=== PATIENT | female | born 1955 | race Two or more races ===

== ENCOUNTER 2024-06-16 21:10 | Inpatient (IN) | payer OTHER, MEDICAID ==
[~2024-06-16] VITALS: Ht 167.6 cm; Wt 95.1 kg
--- NOTE | 2024-06-16 22:08 | ED.PDOC ---
Altered Mental Status HPI Comments 69-year-old female came to ER via EMS for altered level of consciousness. Per EMS, patient picked up at home, were family members noted patient to be acting altered and confused in the past few hours. Patient recently treated at [facility] for a toe infection 3 days ago.. 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 Family History Family History: Pt Confused Social History Smoker: Pt Confused Alcohol: Pt Confused Drugs: Pt Confused Lives In: Home Unable to Obtain due to: Altered Mental Status Physical Exam General Appearance: No Apparent Distress, Normal HEENT: Normal ENT Inspection, Pharynx Normal, TMs Normal Neck: Full Range of Motion, Non-Tender, Normal, Normal Inspection Respiratory: Chest Non-Tender, Lungs Clear, No Accessory Muscle Use, No Resp iratory Distress, Normal Breath Sounds Cardiovascular: No Edema, No JVD, No Murmur, No Gallop, Normal Peripheral Pulses, Regular Rate/Rhythm Breast Exam: Deferred Gastrointestinal: No Organomegaly, Non Tender, No Pulsatile Mass, Normal Bowel Sounds, Soft Genitalia: Deferred Pelvic: Deferred Rectal: Deferred Extremities: No calf tenderness, Normal capillary refill, Normal inspection, Normal range of motion, Non-tender, No pedal edema Musculoskeletal : Apperance: Normal Neurologic: Alert, 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 Was a procedure done?: No Differential Diagnosis (ALOC) Differential Diagnosis: Hypoglycemia, Encephalopathy, CVA X-Ray, Labs, Meds, VS Vital Signs Date Time Temp Pulse Resp B/P (MAP) Pulse Ox O2 Delivery O2 Flow Rate FiO2 06/17/24 00:05 98.0 85 16 136/47 (76) 98 98.0 06/16/24 23:20 98.0 15 126/44 (71) 98 98.0 06/16/24 23:20 84 15 98 Room Air* 0 21 06/16/24 21:26 83 06/16/24 21:10 97.8 83 20 118/67 (84) 97 97.8 Lab Test 06/16/24 22:54 06/16/24 21:59 Range/Units Troponin I High Sensitivity 11 11 </=34 ng/L White Blood Count 7.2 4.4-10.8 10^3/uL Red Blood Count 3.02 L 4.0-5.20 10^6/uL Hemoglobin 10.3 L 12.2-16.2 g/dL Hematocrit 30.5 L 36.0-46.0 % Mean Corpuscular Volume 100.9 H 80.0-100.0 fL Mean Corpuscular Hemoglobin 34.2 H 28.0-32.0 pg Mean Corpuscular Hemoglobin Concent 33.9 32.0-36.0 g/dL Red Cell Distribution Width 15.4 H 11.8-14.3 % Platelet Count 309 140-450 10^3/uL Mean Platelet Volume 7.1 6.9-10.8 fL Neutrophils (%) (Auto) 64.0 37.0-80.0 % Lymphocytes (%) (Auto) 23.0 10.0-50.0 % Monocytes (%) (Auto) 7.1 0.0-12.0 % Eosinophils (%) (Auto) 4.7 0.0-7.0 % Basophils (%) (Auto) 1.2 0.0-2.0 % Neutrophils # (Auto) 4.6 1.6-8.6 10 ^3/uL Lymphocytes # (Auto) 1.7 0.4-5.4 10 ^3/uL Monocytes # (Auto) 0.5 0-1.3 10 ^3/uL Eosinophils # (Auto) 0.3 0-0.8 10 ^3/uL Basophils # (Auto) 0.1 0-0.2 10 ^3/uL Nucleated Red Blood Cells 0.1 % Sodium Level 141 136-145 mmol/L Potassium Level 4.8 3.5-5.1 mmol/L Chloride Level 110 H 98-107 mmol/L Carbon Dioxide Level 22 20-31 mmol/L Anion Gap 9 5-15 Blood Urea Nitrogen 53 H 9-23 mg/dL Creatinine 2.43 H 0.550-1.02 mg/dL Glomerular Filtration Rate Calc 21 >90 mL/min BUN/Creatinine Ratio 21.8 H 10.0-20.0 Serum Glucose 137 H 74-106 mg/dL Lactic Acid Level 1.1 0.4-2.0 mmol/L Calcium Level 9.5 8.7-10.4 mg/dL Total Bilirubin 0.2 0.2-1.0 mg/dL Aspartate Amino Transferase (AST) 18 13-40 U/L Alanine Aminotransferase (ALT) 18 7-40 U/L Alkaline Phosphatase 126 H 46-116 U/L Total Protein 7.8 5.7-8.2 g/dL Albumin 3.9 3.2-4.8 g/dL EXAM: CT HEAD WITHOUT CONTRAST INDICATION: ams TECHNIQUE: CT of the head without intravenous contrast. Radiation Dose Information: CT Dose: CTDI volume is 53.41 mGy. Dose-length product is 4235.84 mGy*cm The dose indicators for CT are the volume Computed Tomography (CT) Dose Index (CTDIvol) and the Dose Length Product (DLP), and are measured in units of mGy and mGy-cm, respectively. These indicators are not patient dose, but values generated from the CT scanner acquisition factors. The report includes radiation exposure data for exposures received during this examination. COMPARISON: None FINDINGS: Postop changes from an aneurysm clip placement noted in the suprasellar region. Craniotomy defect is noted on the right There is encephalomalacia noted. There is no evidence of acute intracranial hemorrhage, extra-axial collection, mass effect, midline shift, herniation or hydrocephalus. The ventricles, sulci and cisterns are age appropriate. The cheng-white differentiation is intact. Patchy periventricular and subcortical white matter hypoattenuation is no nspecific but may be related to small vessel ischemic disease. The visualized paranasal sinuses and mastoid air cells are clear. The surrounding soft tissues and osseous structures are unremarkable. IMPRESSION: 1. Postop change from a craniotomy on the right from aneurysm clip placement. 2. No acute intracranial hemorrhage. CHEST RADIOGRAPH Indication: ams Technique: Single frontal view of the chest was obtained Comparison: None FINDINGS: Heart size is within normal limits. There is bilateral interstitial prominence no infiltrates or effusions are seen. IMPRESSION: 1. Bilateral interstitial prominence. follow-up CT examination of the chest suggested Time of 1ST Reevaluation: 22:45 Reevaluation 1ST: Unchanged Patient Education/Counseling: Diagnosis, Treatment Family Education/Counseling: No Family Present Departure 1 Departure Time of Disposition: 00:56 (Patient with altered mental status and worsening confusion. Patient was on antibiotics for a urinary tract infection at home. We will admit patient for further workup.) Impression: Primary Impression: Metabolic encephalopathy Disposition: ADMITTED INPATIENT Admit to: Med Surg Condition: Serious Critical Care Note Critical Care Time?: Yes (35 min-critical care time only) Critical care comment: ALOC Authorized and Performed by: Vin Vega MD Total critical care time: Approximately 37 minutes Due to a high probability of clinically significant, life threatening dete rioration, the patient required my highest level of preparedness to intervene emergently and I personally spent this critical care time directly and personally managing the patient. This critical care time included obtaining a history; examining the patient; pulse oximetry; ordering and review of studies; arranging urgent treatment with development of a management plan; evaluation of patient's response to treatment; frequent reassessment; and, discussions with other providers. This critical care time was performed to assess and manage the high probability of imminent, life-threatening deterioration that could result in multi-organ f ailure. It was exclusive of separately billable procedures and treating other patients and teaching time. Please see my other sections and the rest of the note for further information on patient assessment and treatment. Stability Stability form required: No Heart Score Heart Score: Heart Score Response (Comments) Value History N/A 0 EKG N/A 0 Age N/A 0 Risk Factors N/A 0 Troponin N/A 0 Total 0 I personally scribed for VIN VEGA MD ([email or web address]) on 06/16/24 at 22:08. Electronically submitted by Livan Hernandez ([email or web address]). I personally scribed for VIN VEGA MD ([email or web address]) on 06/16/24 at 22:45. Electronically submitted by Livan Hernandez ([email or web address]). I personally scribed for VIN VEGA MD ([email or web address]) on 06/16/24 at 22:47. Electronically submitted by Livan Hernandez ([email or web address]). VIN VEGA MD Jun 16, 2024 22:08
--- NOTE | 2024-06-16 22:11 | DVH ---
CHEST RADIOGRAPH Indication: ams Technique: Single frontal view of the chest was obtained Comparison: None FINDINGS: Heart size is within normal limits. There is bilateral interstitial prominence no infiltrates or effu sions are seen. IMPRESSION: 1. Bilateral interstitial prominence. follow-up CT examination of the chest suggested
--- NOTE | 2024-06-16 22:14 | DVH ---
EXAM: CT HEAD WITHOUT CONTRAST INDICATION: ams TECHNIQUE: CT of the head without intravenous contrast. Radiation Dose Information: CT Dose: CTDI volume is 53.41 mGy. Dose-length product is 4235.84 mGy*cm The dose indicators for CT are the volume Computed Tomography (CT) Dose Index (CTDIvol) and the Dose Length Product (DLP), and are measured in units of mGy and mGy-cm, respectively. These indicators are not patient dose, but values generated from the CT scanner acquisition factors. The report includes radiation exposure data for exposures received during this examination. COMPARISON: None FINDINGS: Postop changes from an aneurysm clip placement noted in the suprasellar region. Craniotomy defect is noted on the right There is encephalomalacia noted. There is no evidence of acute intracranial hemorr rena, extra-axial collection, mass effect, midline shift, herniation or hydrocephalus. The ventricles, sulci and cisterns are age appropriate. The cheng-white differentiation is intact. Patchy periventricular and subcortical white matter hypoattenuation is nonspecific but may be related to small vessel ischemic disease. The visualized paranasal sinuses and mastoid air cells are clear. The surrounding soft tissues and osseous structures are unremarkable. IMPRESSION: 1. Postop change from a craniotomy on the right from aneurysm clip placement. 2. No acute intracranial hemorrhage.
[2024-06-16 22:35] LABS: Alanine Aminotransferase 18 U/L (7-40); Albumin 3.9 g/dL (3.2-4.8); Anion Gap 9 (5-15); Aspartate Aminotransferase 18 U/L (13-40); BUN/Creatinine Ratio 21.8 (10.0-20.0); Calcium 9.5 mg/dL (8.7-10.4); Carbon Dioxide 22 mmol/L (20-31); Potassium 4.8 mmol/L (3.5-5.1); Sodium 141 mmol/L (136-145); Total Protein 7.8 g/dL (5.7-8.2)
[2024-06-16 22:40] LABS: Alkaline Phosphatase 126 U/L (46-116); Basophils # (auto) 0.1 10 ^3/uL (0-0.2); Basophils % (auto) 1.2 % (0.0-2.0); Bilirubin, Total 0.2 mg/dL (0.2-1.0); Blood Urea Nitrogen 53 mg/dL (9-23); Chloride 110 mmol/L (98-107); Eosinophils # (auto) 0.3 10 ^3/uL (0-0.8); Eosinophils % (auto) 4.7 % (0.0-7.0); Glucose 137 mg/dL (74-106); Hematocrit 30.5 % (36.0-46.0); Hemoglobin 10.3 g/dL (12.2-16.2); Lymphocytes # (auto) 1.7 10 ^3/uL (0.4-5.4); Mean Corpuscular Hemoglobin 34.2 pg (28.0-32.0); Mean Corpuscular Hgb Conc. 33.9 g/dL (32.0-36.0); Mean Corpuscular Volume 100.9 fL (80.0-100.0); Monocytes # (auto) 0.5 10 ^3/uL (0-1.3); Monocytes % (auto) 7.1 % (0.0-12.0); Neutrophils # (auto) 4.6 10 ^3/uL (1.6-8.6); Nucleated Red Blood Cells % 0.1 %; Platelet Count (auto) 309 10^3/uL (140-450); Red Blood Cells 3.02 10^6/uL (4.0-5.20); Red Cell Distribution Width 15.4 % (11.8-14.3); White Blood Cell 7.2 10^3/uL (4.4-10.8)
[2024-06-16 23:20] VITALS: PULSE 84; RESP 15; O2SAT 98
[2024-06-17 01:38] LABS: Urine Bacteria None Seen /hpf (None Seen)
[2024-06-17 01:49] LABS: Urine Blood Negative /uL (Negative); Urine Clarity Clear (Clear); Urine Color Yellow (Yellow); Urine Protein, UAD 1+ (Negative); Urine Specific Gravity 1.018 (1.001-1.035); Urine Squamous Epithelial Cell FEW /hpf (<5); Urine Urobilinogen Normal (Negative); Urine WBC 1 /HPF (0-5); Urine pH 5.5 (5.0-9.0)
--- NOTE | 2024-06-17 06:48 | ECG ---
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
[2024-06-17 07:32] VITALS: PULSE 84; RESP 15; O2SAT 98
--- NOTE | 2024-06-17 07:41 | DVH ---
EXAM: CT Chest Without Intravenous Contrast CLINICAL INDICATION: pna TECHNIQUE: Axial computed tomography images of the chest without intravenous contrast. This CT exam was performed using one or more of the following dose reduction techniques: automated exposure cont rol, adjustment of the mA and/or kV according to patient size, and/or use of iterative reconstruction technique. CONTRAST: RADIATION DOSE: CTDIvol = 15.35 mGy, DLP = 533.71 mGy-cm COMPARISON: None FINDINGS: LUNGS AND PLEURAL SPACES: Subtle nodular ground-glass opacity of the right lower lobe could be infe ctious or inflammatory process. Repeat CT in 3-6 months is recommended. Dependent atelectasis, bilat erally. No pneumothorax. No significant effusion. HEART: Unremarkable. No cardiomegaly. No significant pericardial effusion. No significant petersen ry artery calcifications. MEDIASTINUM: Scattered mediastinal lymph nodes some of which are upper limits of normal in size and are most likely reactive lymph nodes. Small esophageal hiatal hernia. BONES/JOINTS: Unremarkable. No acute fracture. No dislocation. SOFT TISSUES: Unremarkable. VASCULATURE: Scattered calcified atherosclerotic disease of aorta. No thoracic aortic aneurysm. LYMPH NODES: See above. OTHER FINDINGS: . . . . IMPRESSION: 1. Subtle nodular ground-glass opacity of the right lower lobe could be infectious or inflammatory p rocess. Repeat CT in 3-6 months is recommended. 2. Scattered mediastinal lymph nodes some of which are upper limits of normal in size and are most l ikely reactive lymph nodes. 3. Small esophageal hiatal hernia.
[2024-06-17] MEDS ORDERED: ONDANSETRON HCL 4 MG/2 ML VIAL IV PRN (08:00)
[2024-06-17] MEDS ORDERED: VANCOMYCIN PER PHARMACY 0 MG IV SCH (08:00)
[2024-06-17] MEDS ORDERED: DEXTROSE (50%) 50ML SYRG IV PRN (08:00)
--- NOTE | 2024-06-17 08:40 | DVHHP2 ---
History of Present Illness Reason for Visit: ALOC History of Present Illness Thu Chavez is a 69-year-old female with past medical history of hypertension, hyperlipidemia, diabetes type 2, and COPD who presents to the ED for altered level conscious. Patient reports that she fell 3 days ago fall from her wheelchair and landed on her head with no loss of consciousness. Per reports patient was at [facility] 3 days ago for a right toe infection. Tod onofre also reports that she uses a wheelchair to get around. Upon examination patient is noted to have bruising and scarring above her nasal bridge as well as her left nare. Patient denies any chest pain, fever, chills, lightheadedness, weakness, dizziness, shortness of breath, recent sick contacts, recent ingestion of spoiled food, abdominal pain, nausea, vomiting, or diarrhea. Cardiovascular: HTN, hyperipidemia Pulmonary: COPD Endocrine: Diabetes Past Surgical History: None Family History: None Smoke: No ALCOHOL: none Drugs: None Lives: with Family Domestic Violence: Neg Review of Systems Skin: Other (Erythema bilateral lower extremities) Allergies: Coded Allergies: Felbamate (Verified Allergy, Unknown, 06/16/24) Exam Vital Signs Vital Signs Date Time Temp Pulse Resp B/P (MAP) Pulse Ox O2 Delivery O2 Flow Rate FiO2 06/17/24 07:32 84 15 98 Room Air* 0 21 06/17/24 06:51 111/47 (68) 06/17/24 00:05 98.0 98.0 General Appearance: Alert, Oriented X3, Cooperative, No acute distress HEENT: Atraumatic, PERRLA, EOMI, Mucous membr. moist/pink Respiratory: Normal air movement Cardiovascular: Regular rate, Normal S1, Normal S2, No murmurs Abdominal: Normal bowel sounds, Soft, No tenderness, No hepatospenomegaly Extremities: No clubbing, No cyanosis Neuro: Normal speech, Normal tone, Sensation intact Psych/Mental Status: Mental status NL, Mood NL Labs/Xrays Labs Test 06/17/24 01:20 06/16/24 22:54 06/16/24 21:59 Range/Units Urine Color Yellow Yellow Urine Clarity Clear Clear Urine pH 5.5 5.0-9.0 Urine Specific [place] 1.018 1.001-1.035 Urine Protein 1+ H Negative Urine Ketones Negative Negative Urine Blood Negative Negative /uL Urine Nitrite Negative Negative Urine Bilirubin Negative Negative Urine Urobilinogen Normal Negative mg/dL Urine Leukocyte Esterase Negative Negative /uL Urine RBC None seen 0 - 4 /hpf Urine Microscopic WBC 1 0-5 /HPF Urine Squamous Epithelial Cells Few <5 /hpf Urine Bacteria None seen None Seen /hpf Urine Glucose Normal Normal mg/dL Troponin I High Sensitivity 11 </=34 ng/L White Blood Count 7.2 4.4-10.8 10^3/uL Red Blood Count 3.02 L 4.0-5.20 10^6/uL Hemoglobin 10.3 L 12.2-16.2 g/dL Hematocrit 30.5 L 36.0-46.0 % Mean Corpuscular Volume 100.9 H 80.0-100.0 fL Mean Corpuscular Hemoglobin 34.2 H 28.0-32.0 pg Mean Corpuscular Hemoglobin Concent 33.9 32.0-36.0 g/dL Red Cell Distribution Width 15.4 H 11.8-14.3 % Platelet Count 309 140-450 10^3/uL Mean Platelet Volume 7.1 6.9-10.8 fL Neutrophils (%) (Auto) 64.0 37.0-80.0 % Lymphocytes (%) (Auto) 23.0 10.0-50.0 % Monocytes (%) (Auto) 7.1 0.0-12.0 % Eosinophils (%) (Auto) 4.7 0.0-7.0 % Basophils (%) (Auto) 1.2 0.0-2.0 % Neutrophils # (Auto) 4.6 1.6-8.6 10 ^3/uL Lymphocytes # (Auto) 1.7 0.4-5.4 10 ^3/uL Monocytes # (Auto) 0.5 0-1.3 10 ^3/uL Eosinophils # (Auto) 0.3 0-0.8 10 ^3/uL Basophils # (Auto) 0.1 0-0.2 10 ^3/uL Nucleated Red Blood Cells 0.1 % Sodium Level 141 136-145 mmol/L Potassium Level 4.8 3.5-5.1 mmol/L Chloride Level 110 H 98-107 mmol/L Carbon Dioxide Level 22 20-31 mmol/L Anion Gap 9 5-15 Blood Urea Nitrogen 53 H 9-23 mg/dL Creatinine 2.43 H 0.550-1.02 mg/dL Glomerular Filtration Rate Calc 21 >90 mL/min BUN/Creatinine Ratio 21.8 H 10.0-20.0 Serum Glucose 137 H 74-106 mg/dL Lactic Acid Level 1.1 0.4-2.0 mmol/L Calcium Level 9.5 8.7-10.4 mg/dL Total Bilirubin 0.2 0.2-1.0 mg/dL Aspartate Amino Transferase (AST) 18 13-40 U/L Alanine Aminotransferase (ALT) 18 7-40 U/L Alkaline Phosphatase 126 H 46-116 U/L Total Protein 7.8 5.7-8.2 g/dL Albumin 3.9 3.2-4.8 g/dL EXAM: CT Chest Without Intravenous Contrast CLINICAL INDICATION: pna TECHNIQUE: Axial computed tomography images of the chest without intravenous contrast. This CT exam was performed using one or more of the following dose reduction techniques: automated exposure control, adjustment of the mA and/or kV according to patient size, and/or use of iterative reconstruction technique. CONTRAST: RADIATION DOSE: CTDIvol = 15.35 mGy, DLP = 533.71 mGy-cm COMPARISON: None FINDINGS: LUNGS AND PLEURAL SPACES: Subtle nodular ground-glass opacity of the right lower lobe could be infectious or inflammatory process. Repeat CT in 3-6 months is recommended. Dependent atelectasis, bilaterally. No pneumothorax. No significant effusion. HEART: Unremarkable. No cardiomegaly. No significant pericardial effusion. No significant coronary artery calcifications. MEDIASTINUM: Scattered mediastinal lymph nodes some of which are upper limits of normal in size and are most likely reactive lymph nodes. Small esophageal hiatal hernia. BONES/JOINTS: Unremarkable. No acute fracture. No dislocation. SOFT TISSUES: Unremarkable. VASCULATURE: Scattered calcified atherosclerotic disease of aorta. No thoracic aortic aneurysm. LYMPH NODES: See above. OTHER FINDINGS: . . . . IMPRESSION: 1. Subtle nodular ground-glass opacity of the right lower lobe could be infecti ous or inflammatory process. Repeat CT in 3-6 months is recommended. 2. Scattered mediastinal lymph nodes some of which are upper limits of normal in size and are most likely reactive lymph nodes. 3. Small esophageal hiatal hernia. EXAM: CT HEAD WITHOUT CONTRAST INDICATION: ams TECHNIQUE: CT of the head without intravenous contrast. Radiation Dose Information: CT Dose: CTDI volume is 53.41 mGy. Dose-length product is 4235.84 mGy*cm The dose indicators for CT are the volume Computed Tomography (CT) Dose Index (CTDIvol) and the Dose Length Product (DLP), and are measured in units of mGy and mGy-cm, respectively. These indicators are not patient dose, but values generated from the CT scanner acquisition factors. The report includes radiation exposure data for exposures received during this examination. COMPARISON: None FINDINGS: Postop changes from an aneurysm clip placement noted in the suprasellar region. Craniotomy defect is noted on the right There is encephalomalacia noted. There is no evidence of acute intracranial hemorrhage, extra-axial collection, mass effect, midline shift, herniation or hydrocephalus. The ventricles, sulci and cisterns are age appropriate. The cheng-white differentiation is intact. Patchy periventricular and subcortical white matter hypoattenuation is nonspecific but may be related to small vessel ischemic disease. The visualized paranasal sinuses and mastoid air cells are clear. The surrounding soft tissues and osseous structures are unremarkable. IMPRESSION: 1. Postop change from a craniotomy on the right from aneurysm clip placement. 2. No acute intracranial hemorrhage. CHEST RADIOGRAPH Indication: ams Technique: Single frontal view of the chest was obtained Comparison: None FINDINGS: Heart size is within normal limits. There is bilateral interstitial prominence no infiltrates or effusions are seen. IMPRESSION: 1. Bilateral interstitial prominence. follow-up CT examination of the chest suggested Assessment/Plan Assessment/Plan Assessment Acute encephalopathy Status post mechanical fall Erythromelalgia rule out cellulitis Right lower lobe opacity rule out pneumonia Small esophageal hiatal hernia History of hypertension History of hyperlipidemia History of diabetes type 2 History of COPD Plan Admit to [facility] Jackson catheter placed in ED EKG Troponin negative x2 Blood cultures Lactic level Urine culture CT head noted Chest x-ray UA CT chest ordered Hemoglobin A1c ISS and Accu-Cheks Wound care consult IV antibiotics-vancomycin + cefepime Home medications reconciled DVT prophylaxis-patient on Plavix PUD prophylaxis-Protonix Discussed plan of care with patient and nurse Nephro consult Plan discussed with: Patient My Orders Orders - JOSEP CHAPA [employer] Procedure Category Date Status Time Chest Without Contrast CT 06/17/24 Resulted 06:54 *[facility] CONS 06/17/24 Verified -[place] 07:50 * Wound Consult CONS 06/17/24 Verified Admit ADMIT 06/17/24 Verified 07:50 Allergies ED 06/17/24 Verified 07:50 Code Status CODE 06/17/24 Verified 07:50 Hydrocodone-Acet PHA 06/17/24 Verified 5/325mg Tab ([place] 08:00 Ondansetron Hcl PHA 06/17/24 Verified (Zofran) 08:00 Complete Blood Count LAB 06/18/24 Verified 04:00 Comprehensive LAB 06/18/24 Verified Metabolic Panel 04:00 Cardiac DIET 06/17/24 Verified Diet-2gna,Lofat,Lochol Breakfast Enoxaparin Sodium PHA 06/17/24 Verified (Lovenox) 10:00 Acetaminophen Tablet PHA 06/17/24 Verified (Tylenol Tablet) 08:00 Glucose Blood PHA 06/17/24 Verified (Accu-Chek Comfort 11:30 Mild Sliding Scale PHA 06/17/24 Verified 11:30 Dextrose 50% Syringe PHA 06/17/24 Verified 08:00 Hemoglobin A1c LAB 06/17/24 Verified 07:50 Vancomycin Per PHA 06/17/24 Verified Pharmacy 08:00 Cefepime 1 Gm PHA 06/17/24 Verified 10:00 Date of Service: Jun 17, 2024 Billing Provider: JOSEP CHAPA Common Visit Codes: [id number] INP/OBS CARE (HIGH) JOSEP CHAPA Jun 17, 2024 08:40
[2024-06-17] MEDS ORDERED: CARB200T4 PO (08:50)
[2024-06-17] MEDS ORDERED: CLOP75TA70 PO (08:50)
[2024-06-17] MEDS ORDERED: CARV3.1240 PO (08:50)
[2024-06-17] MEDS ORDERED: FURO40TA4 PO (08:50)
[2024-06-17] MEDS ORDERED: ALLO100T PO (08:50)
[2024-06-17] MEDS ORDERED: GABA-1250 PO (08:50)
[2024-06-17] MEDS ORDERED: MONT-8 PO (08:50)
[2024-06-17] MEDS ORDERED: ATOR40TA52 (08:50)
[2024-06-17] MEDS ORDERED: AMLO1TAB23 PO (08:50)
[2024-06-17] MEDS: VANCOMYCIN 1GM/200ML PM 200 ML IV ONE (09:35)
[2024-06-17] MEDS: amLODIPine BESYLATE 5 MG TAB PO SCH (10:00)
[2024-06-17] MEDS ORDERED: OSELTAMIVIR 75 MG CAP PO SCH (10:00)
[2024-06-17] MEDS ORDERED: ENOXAPARIN SOD 30 MG/0.3 ML SYRINGE SC SCH (10:00)
[2024-06-17] MEDS: FUROSEMIDE 40 MG TAB PO SCH (10:00)
[2024-06-17] MEDS: MONTELUKAST SODIUM 10 MG TAB PO SCH (11:04)
[2024-06-17] MEDS: CEFEPIME 1GM/ 50ML 50 ML IV SCH (11:04)
[2024-06-17] MEDS: CLOPIDOGREL BISULFATE 75 MG TAB PO SCH (11:04)
[2024-06-17] MEDS: CARVEDILOL 3.125 MG TAB PO SCH (11:05)
[2024-06-17] MEDS: GABAPENTIN 300 MG CAP PO SCH (11:05)
[2024-06-17] MEDS: InsuLIN REG 1unit/0.01ml Soln (100units/ml) SC SCH (11:27)
[2024-06-17] MEDS: ACCU-CHEK COMFORT CURVE STRIP VI SCH (11:27)
[2024-06-17 12:59] LABS: Protein, Urine 99.5 mg/dL (1-14)
[2024-06-17] MEDS: carBAMazepine 200 MG TAB PO SCH (12:59)
[2024-06-17 13:02] LABS: Creatinine, Urine 97.12 mg/dL (30.0-125.0)
[2024-06-17] MEDS: SODIUM CHLORIDE 0.9% 1,000 ML IV ONE (13:28)
[2024-06-17] MEDS: PANTOPRAZOLE 40 MG/10 ML VIAL INJ IV SCH (15:50)
--- NOTE | 2024-06-17 16:20 | DVH ---
US BiLat Lower DVT HISTORY: ro dvt COMPARISON: None TECHNIQUE: Duplex doppler evaluation of the deep venous system of the lower extremity from the common femoral veins, superficial femoral vein, great saphenous vein, deep femoral vein, popliteal vein, an d calf veins, including color Doppler and spectral/pulsed waveform analysis, was performed. FINDINGS: Right: - Common femoral vein: Compressible - Deep femoral vein: Compressible - Femoral vein: Compressible - Popliteal vein: Compressible - Posterior tibial vein: Waveforms present Left: - Common femoral vein: Compressible - Deep femoral vein: Compressible - Femoral vein: Compressible - Popliteal vein: Compressible - Posterior tibial vein: Waveforms present - Other: Nothing IMPRESSION: No right or left lower extremity deep venous thrombosis.
[2024-06-17 16:31] VITALS: BP 112/44; PULSE 83; RESP 18; TEMP 97.6; O2SAT 98
[2024-06-17 16:47] VITALS: BP 112/44; PULSE 91; RESP 18; TEMP 97.6; O2SAT 98
[2024-06-17] MEDS: HYDROcodone-ACET 5/325MG TAB PO PRN (17:31)
[2024-06-17 20:00] VITALS: PULSE 62; RESP 16; O2SAT 92
[2024-06-17 21:00] VITALS: BP 118/50; PULSE 62; RESP 15; TEMP 98.2; O2SAT 100
[2024-06-17] MEDS: ATORVASTATIN 20 MG TAB PO SCH (22:07)
[2024-06-18] VITALS (11 sets, daily range): BP systolic 102–141; BP diastolic 43–59; PULSE 71–98; RESP 17–20; TEMP 97.3–98.1; O2SAT 93–99
[2024-06-18 07:30] LABS: Basophils # (auto) 0.1 10 ^3/uL (0-0.2); Basophils % (auto) 1.1 % (0.0-2.0); Eosinophils # (auto) 0.4 10 ^3/uL (0-0.8); Hematocrit 29.4 % (36.0-46.0); Lymphocytes # (auto) 1.6 10 ^3/uL (0.4-5.4); Lymphocytes % (auto) 16.6 % (10.0-50.0); Mean Corpuscular Hemoglobin 34.1 pg (28.0-32.0); Mean Corpuscular Hgb Conc. 33.9 g/dL (32.0-36.0); Mean Corpuscular Volume 100.5 fL (80.0-100.0); Monocytes # (auto) 0.7 10 ^3/uL (0-1.3); Monocytes % (auto) 7.2 % (0.0-12.0); Neutrophils # (auto) 6.7 10 ^3/uL (1.6-8.6); Neutrophils % (auto) 71.1 % (37.0-80.0); Platelet Count (auto) 317 10^3/uL (140-450); Red Blood Cells 2.93 10^6/uL (4.0-5.20); White Blood Cell 9.4 10^3/uL (4.4-10.8)
[2024-06-18 07:35] LABS: Alanine Aminotransferase 15 U/L (7-40); Albumin 3.6 g/dL (3.2-4.8); Anion Gap 11 (5-15); Aspartate Aminotransferase 18 U/L (13-40); BUN/Creatinine Ratio 19.9 (10.0-20.0); Calcium 9.3 mg/dL (8.7-10.4); Potassium 4.4 mmol/L (3.5-5.1); Sodium 139 mmol/L (136-145); Total Protein 7.3 g/dL (5.7-8.2)
[2024-06-18 07:36] LABS: Bilirubin, Total 0.3 mg/dL (0.2-1.0); Phosphorus 3.3 mg/dL (2.4-5.1)
[2024-06-18 07:42] LABS: Alkaline Phosphatase 122 U/L (46-116); Blood Urea Nitrogen 50 mg/dL (9-23); Carbon Dioxide 19 mmol/L (20-31); Chloride 109 mmol/L (98-107); Glucose 122 mg/dL (74-106)
[2024-06-18 07:57] LABS: Uric Acid 9.5 mg/dL (3.1-7.8)
[2024-06-18] MEDS: SODIUM CHLORIDE 0.9% 1,000 ML IV ONE ×2 (12:42→15:06)
[2024-06-18] MEDS ORDERED: VANCOMYCIN 750MG KIT 100 ML IV ONE (13:00)
--- NOTE | 2024-06-18 14:00 | DVH ---
CLINICAL INFORMATION: Abnormal laboratory findings. TECHNIQUE: Grayscale sonographic imaging of the kidneys and bladder was performed, assisted by color Doppler technique. COMPARISON: None FINDINGS: The right kidney measures 7.2 cm in length. No hydronephrosis. Increased echogenicity of the right kidney with likely decreased cortical thickness. Right kidney is poorly visualized The left kidney measures 7.9 cm in length. No hydronephrosis. Increased cortical echogenicity of th e left kidney with decreased cortical thickness. Limited visualization of the left kidney. Bladder is collapsed around a Jackson catheter balloon and unable to be evaluated. IMPRESSION: 1. No hydronephrosis. 2. Small bilateral kidneys with increased cortical echogenicity, likely sequela of nonspecific medica l renal disease. 3. Limited examination.
[2024-06-18] MEDS: MULTIPLE VITAMIN TAB PO ONE (14:14)
[2024-06-18] MEDS: cefTRIAXone 1GM/50ML D5W 50 ML IV ONE (14:15)
--- NOTE | 2024-06-18 14:46 | DVH ---
BILATERAL Lower Extremity Arterial Duplex Date: 06/18/2024 10:58 AM Clinical History: PAD Comparison: None Technique: Duplex Doppler evaluation including color Doppler and spectral/pulsed waveform analysis of the lower extremity arteries was performed. Finding: RIGHT: Peak systolic velocities are as follows: [employer] 183 cm/s triphasic waveform 30-49% stenosis Deep femoral 174 cm/s triphasic waveform 30-40% stenosis SFA proximal 154 cm/s triphasic waveform 30-49% stenosis SFA mid-portion 133 cm/s biphasic waveform SFA distal 83 cm/s monophasic waveform Popliteal 55 cm/s monophasic waveform Posterior tibial 17 cm/s monophasic Anterior tibial 126 cm/s monophasic Dorsalis pedis 27 cm/s monophasic waveform The waveforms are triphasic and biphasic waveform to the mid superficial femoral artery. Monophasic w aveform distal to that level. LEFT: Peak systolic velocities are as follows: WO[employer] 228 cm/s triphasic waveform 50-75% stenosis Deep femoral 132 cm/s biphasic waveform SFA proximal 139 cm/s biphasic waveform SFA mid-portion 170 cm/s biphasic waveform SFA distal 74 cm/s biphasic waveform Popliteal 268 cm/s biphasic waveform 50-75% stenosis Posterior tibial 60 cm/s biphasic waveform Anterior tibial 38 cm/s biphasic waveform Dorsalis pedis 47 cm/s monophasic waveform The waveforms are triphasic and biphasic waveform. Monophasic waveform in the dorsalis pedis. REFERENCE VALUES, [facility] ([facility]) vascular Imaging Lab Criteria: Peak systolic velocity ranges (in cm/sec) are as follows: <150 cm/s - <20 % stenosis 150-200 cm/s - 20-49% stenosis 200-300 cm/s - 50-75% stenosis >300 cm/s -> 75% stenosis IMPRESSION: 1. There is 30-49% stenosis in the right common femoral artery deep femoral artery and mid superficia l femoral artery. Monophasic waveform in the right superficial femoral artery proximally and monophas ic waveform to the dorsalis pedis on the right 2. On the left there is 50-75% stenosis in the common femoral artery. 3. There is 50-75% stenosis in the left mid superficial femoral artery 4. There is 50-75% stenosis in the left popliteal artery 5. The arteries are calcified bilaterally throughout. 6. No significant focal stenosis is identified. There is no evidence for peripheral vascular insufficiency in the left lower extremity.
[2024-06-18] MEDS ORDERED: ALBU108A5 PO (15:06)
[2024-06-18] MEDS ORDERED: CEPH500C PO (15:06)
[2024-06-18] MEDS ORDERED: ASPI1CHW5 PO (15:06)
--- NOTE | 2024-06-18 15:16 | DVHINCON2 ---
Date of service: Jun 18, 2024 Referring Physician Sania Reason for Consultation MARILIN History of Present Illness 69 y/o female with past medical hx of CKD unknown stage, HTN, DM type 2, COPD, and hyperlipidemia. Pt was admitted for acute encephalopathy, r/o LLE cellulitis. Pt reports she fell at home. Nephrology consult for MARILIN. On admission BUN 53, creat 2.43, GFR 21. Pt reports hx of CKD however does not recall stage or last GFR. Denies NSAID use. Reports HTN and DM are well controlled. Past Medical History CKD unknown stage, HTN, DM type 2, COPD, and hyperlipidemia Allergies: Coded Allergies: Felbamate (Verified Allergy, Unknown, 06/16/24) Home Meds Reported Medications Aspirin (Chewable Aspirin) 81 Mg Chw, 1 TAB PO DAILY 06/18/24 Albuterol Sulfate (Albuterol Sulfate Hfa) 108 Mcg/Act Aer, 2 PUFF PO Q4HPRN PRN for SHORTNESS OF BREATH 06/18/24 Cephalexin Monohydrate (Cephalexin) 500 Mg Cap, 1 CAP PO QID 06/18/24 Atorvastatin Calcium (ATORVASTATIN CALCIUM) 40 Mg Tab 06/17/24 Gabapentin (Gabapentin) 300 Mg Cap, 1 CAP PO BID 06/17/24 Amlodipine Besylate (Amlodipine Besylate) 10 Mg Tab, 1 TAB PO DAILY 06/17/24 Montelukast Sodium (MONTELUKAST SODIUM) 10 Mg Tab, 1 TAB PO DAILY 06/17/24 Carbamazepine (Carbamazepine) 200 Mg Tab, 1 TAB PO QID 06/17/24 Clopidogrel Bisulfate (CLOPIDOGREL) 75 Mg Tab, 1 TAB PO DAILY 06/17/24 Furosemide (Furosemide) 40 Mg Tab, 1 TAB PO BID 06/17/24 Carvedilol (Carvedilol) 3.125 Mg Tab, 1 TAB PO 06/17/24 Allopurinol (Allopurinol) 100 Mg Tab, 1 TAB PO DAILY 06/17/24 Current Medications Current Medications Medications (Trade) Dose Ordered Sig/Martita Route PRN Reason Start Time Stop Time Status Last Admin Atorvastatin Calcium (Lipitor) 40 mg HS PO 06/17/24 22:00 06/17/24 22:07 Ceftriaxone Sodium 50 ml @ 100 mls/hr DAILY@09 IV 06/19/24 09:00 Multivitamins (Mvi Tab) 1 tab DAILY PO 06/19/24 10:00 Enteral Nutritional Formula (Ensure High Protein) 240 ml BIDWM PO 06/18/24 18:00 Cancel Enteral Nutritional Formula (Glucerna Carbsteady SHAKE) 240 ml BIDWM PO 06/18/24 18:00 Doxycycline Hyclate 100 ml @ 50 mls/hr Q12HR IV 06/18/24 22:00 Albuterol (Ventolin Medneb) 2.5 mg Q6HWA NEB 06/18/24 18:00 Ipratropium [place] (Atrovent Medneb) 0.5 mg Q6HWA NEB 06/18/24 18:00 Emollient Ointment (Vaseline Lip Therapy) 1 applic PRN PRN TOP FOR DRY LIPS 06/18/24 17:15 UNV Family History: Patient reports no known family medical history. Review of Systems 10 systems reviewed and negative except as per HPI H&P Exam Vital Signs/I&O Vital Sign Date Time Temp Pulse Resp B/P (MAP) Pulse Ox O2 Delivery O2 Flow Rate FiO2 06/18/24 17:10 129/59 (82) 06/18/24 17:06 97.7 83 19 99 97.7 06/17/24 20:00 Room Air* 0 21 Intake and Output 06/17/24 06/18/24 19:00 07:00 Intake Total 200 ml 800 ml Output Total 1200 ml 600 ml Balance -1000 ml 200 ml Intake Oral 800 ml IV Total 200 ml Output Urine Total 1200 ml 600 ml Physical Exam Gen: Appears stated age, no acute distress HEENT: Pupils equal and reactive to light and accommodation Lungs: Bilateral air entry, no rales CVS: RRR, normal S1 and S2 Abd: normoactive bowel sounds, soft, nondistended Ext: No edema Neuro: Alert and oriented x3 Labs/Diagnostic Data Labs/Diagnostic Data Laboratory Tests Test 06/18/24 16:53 06/18/24 15:01 06/18/24 12:32 06/18/24 06:30 Range/Units POC Glucose 101 104 70-106 mg/dl Ammonia < 10 L 11-32 umol/L White Blood Count 9.4 # 4.4-10.8 10^3/uL Red Blood Count 2.93 L 4.0-5.20 10^6/uL Hemoglobin 10.0 L 12.2-16.2 g/dL Hematocrit 29.4 L 36.0-46.0 % Mean Corpuscular Volume 100.5 H 80.0-100.0 fL Mean Corpuscular Hemoglobin 34.1 H 28.0-32.0 pg Mean Corpuscular Hemoglobin Concent 33.9 32.0-36.0 g/dL Red Cell Distribution Width 16.0 H 11.8-14.3 % Platelet Count 317 140-450 10^3/uL Mean Platelet Volume 7.4 6.9-10.8 fL Neutrophils (%) (Auto) 71.1 37.0-80.0 % Lymphocytes (%) (Auto) 16.6 10.0-50.0 % Monocytes (%) (Auto) 7.2 0.0-12.0 % Eosinophils (%) (Auto) 4.0 0.0-7.0 % Basophils (%) (Auto) 1.1 0.0-2.0 % Neutrophils # (Auto) 6.7 1.6-8.6 10 ^3/uL Lymphocytes # (Auto) 1.6 0.4-5.4 10 ^3/uL Monocytes # (Auto) 0.7 0-1.3 10 ^3/uL Eosinophils # (Auto) 0.4 0-0.8 10 ^3/uL Basophils # (Auto) 0.1 0-0.2 10 ^3/uL Nucleated Red Blood Cells 0.0 % Sodium Level 139 136-145 mmol/L Potassium Level 4.4 3.5-5.1 mmol/L Chloride Level 109 H 98-107 mmol/L Carbon Dioxide Level 19 L 20-31 mmol/L Anion Gap 11 5-15 Blood Urea Nitrogen 50 H 9-23 mg/dL Creatinine 2.51 H 0.550-1.02 mg/dL Glomerular Filtration Rate Calc 20 >90 mL/min BUN/Creatinine Ratio 19.9 10.0-20.0 Serum Glucose 122 H 74-106 mg/dL Uric Acid 9.5 H 3.1-7.8 mg/dL Calcium Level 9.3 8.7-10.4 mg/dL Phosphorus Level 3.3 2.4-5.1 mg/dL Magnesium Level 2.1 1.6-2.6 mg/dL Total Bilirubin 0.3 0.2-1.0 mg/dL Aspartate Amino Transferase (AST) 18 13-40 U/L Alanine Aminotransferase (ALT) 15 7-40 U/L Alkaline Phosphatase 122 H 46-116 U/L Total Protein 7.3 5.7-8.2 g/dL Albumin 3.6 3.2-4.8 g/dL Thyroid Stimulating Hormone (TSH) 1.99 0.55-4.78 uIU/mL Random Vancomycin Level 12.4 H 5-10 ug/mL Test 06/18/24 05:13 06/17/24 21:43 06/17/24 16:56 06/17/24 11:22 Range/Units POC Glucose 118 H 131 H 154 H 97 70-106 mg/dl Test 06/17/24 01:20 06/16/24 22:54 06/16/24 21:59 Range/Units Urine Color Yellow Yellow Urine Clarity Clear Clear Urine pH 5.5 5.0-9.0 Urine Specific [place] 1.018 1.001-1.035 Urine Protein 1+ H Negative Urine Ketones Negative Negative Urine Blood Negative Negative /uL Urine Nitrite Negative Negative Urine Bilirubin Negative Negative Urine Urobilinogen Normal Negative mg/dL Urine Leukocyte Esterase Negative Negative /uL Urine RBC None seen 0 - 4 /hpf Urine Microscopic WBC 1 0-5 /HPF Urine Squamous Epithelial Cells Few <5 /hpf Urine Bacteria None seen None Seen /hpf Urine Creatinine 97.12 30.0-125.0 mg/dL Urine Sodium 65 40-220 mmol/L Urine Glucose Normal Normal mg/dL Urine Total Protein 99.5 H 1-14 mg/dL Troponin I High Sensitivity 11 11 </=34 ng/L White Blood Count 7.2 4.4-10.8 10^3/uL Red Blood Count 3.02 L 4.0-5.20 10^6/uL Hemoglobin 10.3 L 12.2-16.2 g/dL Hematocrit 30.5 L 36.0-46.0 % Mean Corpuscular Volume 100.9 H 80.0-100.0 fL Mean Corpuscular Hemoglobin 34.2 H 28.0-32.0 pg Mean Corpuscular Hemoglobin Concent 33.9 32.0-36.0 g/dL Red Cell Distribution Width 15.4 H 11.8-14.3 % Platelet Count 309 140-450 10^3/uL Mean Platelet Volume 7.1 6.9-10.8 fL Neutrophils (%) (Auto) 64.0 37.0-80.0 % Lymphocytes (%) (Auto) 23.0 10.0-50.0 % Monocytes (%) (Auto) 7.1 0.0-12.0 % Eosinophils (%) (Auto) 4.7 0.0-7.0 % Basophils (%) (Auto) 1.2 0.0-2.0 % Neutrophils # (Auto) 4.6 1.6-8.6 10 ^3/uL Lymphocytes # (Auto) 1.7 0.4-5.4 10 ^3/uL Monocytes # (Auto) 0.5 0-1.3 10 ^3/uL Eosinophils # (Auto) 0.3 0-0.8 10 ^3/uL Basophils # (Auto) 0.1 0-0.2 10 ^3/uL Nucleated Red Blood Cells 0.1 % Sodium Level 141 136-145 mmol/L Potassium Level 4.8 3.5-5.1 mmol/L Chloride Level 110 H 98-107 mmol/L Carbon Dioxide Level 22 20-31 mmol/L Anion Gap 9 5-15 Blood Urea Nitrogen 53 H 9-23 mg/dL Creatinine 2.43 H 0.550-1.02 mg/dL Glomerular Filtration Rate Calc 21 >90 mL/min BUN/Creatinine Ratio 21.8 H 10.0-20.0 Serum Glucose 137 H 74-106 mg/dL Hemoglobin A1c 5.2 <5.7 % A1C Lactic Acid Level 1.1 0.4-2.0 mmol/L Calcium Level 9.5 8.7-10.4 mg/dL Total Bilirubin 0.2 0.2-1.0 mg/dL Aspartate Amino Transferase (AST) 18 13-40 U/L Alanine Aminotransferase (ALT) 18 7-40 U/L Alkaline Phosphatase 126 H 46-116 U/L Total Protein 7.8 5.7-8.2 g/dL Albumin 3.9 3.2-4.8 g/dL Microbiology Date/Time Source Procedure Growth Status 06/17/24 19:45 Nose MRSA Screen - Final Methicillin Resistant S.aureus Complete Plan/Recommendation IMP MARILIN superimposed on CKD hemodynamically mediated baseline serum creat unknown HTN hx of DM type 2 RLL opacity r/o PNA-on IV abx REC Agree with IVF x 1 L BMP, CBC, TSH, uric acid, vit D, phos, U/A, urine Na, urine creat, urine protein Renal U/S Strict I&O's Avoidance of nephrotoxins Will continue to follow. Plan discussed with: Patient CORKY BUTLER Jun 18, 2024 15:16
--- NOTE | 2024-06-18 17:07 | DVHPNRES ---
Progress Note Date Seen: Jun 18, 2024 Resident Creating Document: LEÓN HWANG PATRICK Has the PT tested + for MRSA If YES, has PT been informed?: No Medical Necessity Reason Pt with a Central, PICC or Fol: No Subjective Review of Systems This is a 69-year-old female with past medical history of hypertension, seizure, dyslipidemia, diabetes type 2, COPD came to the hospital due to altered mental status with decreased oral intake. Patient's [id number], the patient has been altered and decreased oral intake cyst 3 days. She also reports of shortness of breath, cough, generalized weakness and fatigue. Patient at baseline is wheelchair-bound and needs help for daily activity. Patient is altered and reports that she is in the hospital due to an ulcer on the right foot. She denies fever, chest pain, nausea, vomiting, or any recent bowel or bladder habit changes. PMHx: hypertension, seizure, dyslipidemia, diabetes type 2, COPD PSHx: Brain surgery due to brain aneurysm status post clip Family history: Noncontributing Social history: Patient is wheelchair-bound, lives with the son at home, denies smoking or any drug use. Home medication: Amlodipine 10 mg, atorvastatin, aspirin, clopidogrel, albuterol, montelukast, carvedilol, carbamazepine and gabapentin Allergic history: Feel Bumex Patient seen and examined at the bedside. Patient is still altered, but denies any active complaint Objective vital signs Vital Sign Date Time Temp Pulse Resp B/P (MAP) Pulse Ox O2 Delivery O2 Flow Rate FiO2 06/18/24 13:10 97.8 89 19 108/55 (72) 97 97.8 06/17/24 20:00 Room Air* 0 21 Total Intake and Output 06/17/24 06/17/24 06/18/24 15:00 23:00 07:00 Intake Total 200 ml 800 ml Output Total 1200 ml 600 ml Balance 200 ml -1200 ml 200 ml medications Current Medications Medications Dose Ordered Sig/Martita Route Start Time Stop Time Status Last Admin Dose Admin Acetaminophen/ Hydrocodone Bitart 1 tab Q4HP PRN PO 06/17/24 08:00 06/17/24 17:31 1 TAB Ondansetron HCl 4 mg Q4HP PRN IV 06/17/24 08:00 Acetaminophen 650 mg Q6HP PRN PO 06/17/24 08:00 Diagnostic Test (Pha) 1 strip ACHS 06/17/24 11:30 06/18/24 12:33 1 STRIP Insulin Human Regular ACHS SC 06/17/24 11:30 06/17/24 17:34 2 UNITS Dextrose 50 ml UD PRN IV 06/17/24 08:00 Vancomycin HCl 0 ml @ 0 mls/hr UD IV 06/17/24 08:00 Carbamazepine 200 mg QID PO 06/17/24 12:00 06/18/24 12:43 200 MG Carvedilol 3.125 mg DAILY PO 06/17/24 10:00 06/18/24 11:04 3.125 MG Clopidogrel Bisulfate 75 mg DAILY PO 06/17/24 10:00 06/18/24 11:05 75 MG Gabapentin 300 mg BID PO 06/17/24 10:00 06/18/24 11:03 300 MG Montelukast Sodium 10 mg DAILY PO 06/17/24 10:00 06/18/24 11:05 10 MG Amlodipine Besylate 10 mg DAILY PO 06/17/24 10:00 06/18/24 11:09 10 MG Atorvastatin Calcium 40 mg HS PO 06/17/24 22:00 06/17/24 22:07 40 MG Pantoprazole Sodium 40 mg DAILY IV 06/17/24 15:15 06/17/24 15:50 40 MG Ceftriaxone Sodium 50 ml @ 100 mls/hr DAILY@09 IV 06/19/24 09:00 Multivitamins 1 tab DAILY PO 06/19/24 10:00 Enteral Nutritional Formula 240 ml BIDWM PO 06/18/24 18:00 Cancel Enteral Nutritional Formula 240 ml BIDWM PO 06/18/24 18:00 Examination General Appearance: Alert, Oriented to place and person, disoriented to time. HEENT: Atraumatic, PERRLA, EOMI, Mucous membrane moist/pink Respiratory: Clear to auscultation, Normal air movement Cardiovascular: Regular rate, Normal S1, Normal S2, No murmurs, no chest wall tenderness Abdominal: Normal bowel sounds, Soft, No tenderness, No hepatospenomegaly, No masses Extremities: No clubbing, No cyanosis, No edema, Normal pulses, No tenderness/swelling Skin: Bilateral lower limb are scaly, left lower limb is swollen and red with diffuse petechial/purpuric lesions laboratory and microbiology Laboratory Tests 06/18/24 06:30 Test 06/18/24 06:30 Range/Units Serum Glucose 122 H 74-106 mg/dL Microbiology Date/Time Source Procedure Growth Status 06/17/24 19:45 Nose MRSA Screen - Final Methicillin Resistant S.aureus Complete 06/17/24 01:20 Urine - [place] Urine Culture - Preliminary Resulted 06/16/24 21:59 Blood Blood Culture - Preliminary NO GROWTH AFTER 24 HOURS OF INCUBATION. Resulted Labs and/or images reviewed: Labs reviewed by me, Image(s) reviewed by me Problem List/Assessment/Plan Problem List/Assessment/Plan Acute metabolic encephalopathy, likely due to pneumonia Pneumonia, due to methicillin-resistant Staphylococcus aureus Esophageal hernia Peripheral artery disease Dyslipidemia Hypertension Chest CT scan shows, Subtle nodular ground-glass opacity of the right lower lobe could be infectious or inflammatory process with Small esophageal hiatal hernia Duplex ultrasound shows, 30-49% stenosis in the right common femoral artery, 50-75% stenosis in the common femoral artery, 50-75% stenosis in the left mid superficial femoral artery, 50-75% stenosis in the left popliteal artery His CT scan shows no acute intracranial abnormalities MRSA nares positive Empiric antibiotic of ceftriaxone and doxycycline IV fluid Breathing treatment Diabetes type 2 Insulin regular according to sliding scale Seizure Continue home med DIET: Cardiac DVT PROPHYLAXIS: Lovenox CODE STATUS: Goal of care discussed for more than 18 minutes, full code DISPOSITION: Med/surge Patient's status and plan discussed with the patient and the patient's daughter through the phone. Case discussed with Dr. Rodarte. Plan discussed with: Patient, Other ([id number] and the RN) My Orders My Orders Orders - LEÓN HWANG RESDIENT Procedure Category Date Status Time Kidney US 06/18/24 Resulted 09:23 Pt Request For Service PT 06/18/24 Logged 10:21 Sodium Chloride 0.9% PHA 06/18/24 In Process 10:30 Bilat Low Ext Art US 06/18/24 Resulted Duplex 10:26 Ceftriaxone 1gm/50ml PHA 06/19/24 In Process D5w (Rocephin) 09:00 Orthostatic Vital ORDERS 06/18/24 Transmitted Signs 13:26 Multiple Vitamin PHA 06/19/24 In Process Tablet (Mvi Tab) 10:00 * Train Operator CONS 06/18/24 Transmitted Consult Cardiac DIET 06/18/24 Transmitted Diet-2gna,Lofat,Lochol Lunch Nutritional PHA 06/18/24 In Process Supplements (Glucerna 18:00 Date of Service: Jun 18, 2024 Billing Provider: ALEXANDER SOTO MD Common Visit Codes: [id number] INP/OBS CARE(HIGH) SERENASHAEKIMMYEDGARDO RESDIENT Jun 18, 2024 17:07 ALEXANDER SOTO MD Jun 21, 2024 00:53
[2024-06-18] MEDS ORDERED: VASELINE LIP THERAPY 10gm TOP PRN (17:15)
[2024-06-18] MEDS: DOXYCYCLINE 100MG/100ML 100 ML IV ONE (17:15)
[2024-06-18] MEDS ORDERED: Ensure HIGH Protein Chocolate 8oz Bottle PO SCH (18:00)
[2024-06-18] MEDS: Glucerna Carbsteady SHAKE Vanilla 8oz PO SCH (18:00)
[2024-06-18] MEDS: IPRATROPIUM BROM 0.5 MG/2.5ML INH SOL NEB SCH (19:15)
[2024-06-18] MEDS: ALBUTEROL SULF 2.5 MG/0.5ML(0.5%) NEB SOLN NEB SCH (19:15)
[2024-06-18] MEDS: DOXYCYCLINE 100MG/100ML 100 ML IV SCH (23:11)
[2024-06-19] VITALS (17 sets, daily range): BP systolic 99–139; BP diastolic 33–71; PULSE 68–97; RESP 16–19; TEMP 96–98.6; O2SAT 77–100
[2024-06-19 07:47] LABS: Basophils # (auto) 0.1 10 ^3/uL (0-0.2); Basophils % (auto) 0.9 % (0.0-2.0); Eosinophils # (auto) 0.4 10 ^3/uL (0-0.8); Eosinophils % (auto) 5.7 % (0.0-7.0); Hematocrit 29.5 % (36.0-46.0); Lymphocytes # (auto) 1.8 10 ^3/uL (0.4-5.4); Lymphocytes % (auto) 24.4 % (10.0-50.0); Mean Corpuscular Hemoglobin 33.9 pg (28.0-32.0); Mean Corpuscular Hgb Conc. 33.7 g/dL (32.0-36.0); Mean Corpuscular Volume 100.4 fL (80.0-100.0); Monocytes # (auto) 0.6 10 ^3/uL (0-1.3); Monocytes % (auto) 7.9 % (0.0-12.0); Neutrophils # (auto) 4.6 10 ^3/uL (1.6-8.6); Neutrophils % (auto) 61.1 % (37.0-80.0); Nucleated Red Blood Cells % 0.2 %; Platelet Count (auto) 303 10^3/uL (140-450); Red Blood Cells 2.94 10^6/uL (4.0-5.20); Red Cell Distribution Width 15.6 % (11.8-14.3); White Blood Cell 7.5 10^3/uL (4.4-10.8)
[2024-06-19 07:59] LABS: INR 1.01 (0.9-1.15); Partial Thromboplastin Time 24.8 SEC (24.5-34.5); Prothrombin Time 10.7 sec (9.3-11.8)
[2024-06-19 08:10] LABS: Alanine Aminotransferase 13 U/L (7-40); Albumin 3.5 g/dL (3.2-4.8); Alkaline Phosphatase 115 U/L (46-116); Calcium 9.3 mg/dL (8.7-10.4); Glucose 84 mg/dL (74-106)
[2024-06-19 08:11] LABS: Anion Gap 10 (5-15); Aspartate Aminotransferase 19 U/L (13-40); BUN/Creatinine Ratio 21.1 (10.0-20.0); Potassium 4.4 mmol/L (3.5-5.1); Sodium 141 mmol/L (136-145); Total Protein 6.8 g/dL (5.7-8.2)
[2024-06-19 08:12] LABS: Bilirubin, Total 0.3 mg/dL (0.2-1.0); Blood Urea Nitrogen 46 mg/dL (9-23); Carbon Dioxide 19 mmol/L (20-31); Chloride 112 mmol/L (98-107)
[2024-06-19] MEDS: MULTIPLE VITAMIN TAB PO SCH (10:10)
[2024-06-19] MEDS: cefTRIAXone 1GM/50ML D5W 50 ML IV SCH (10:13)
--- NOTE | 2024-06-19 11:10 | DVHPN2 ---
Progress Note Date Seen: Jun 19, 2024 Has the PT tested + for MRSA If YES, has PT been informed?: No Medical Necessity Reason Pt with a Central, PICC or Fol: No Objective vital signs Vital Sign Date Time Temp Pulse Resp B/P (MAP) Pulse Ox O2 Delivery O2 Flow Rate FiO2 06/19/24 10:11 73 103/34 06/19/24 09:00 97.5 18 92 97.5 06/19/24 05:56 Room Air 0.0 06/19/24 05:56 21 Total Intake and Output 06/18/24 06/18/24 06/19/24 15:00 23:00 07:00 Intake Total 1069 ml 525 ml 600 ml Output Total 400 ml Balance 1069 ml 125 ml 600 ml medications Current Medications Medications Dose Ordered Sig/Martita Route Start Time Stop Time Status Last Admin Dose Admin Acetaminophen/ Hydrocodone Bitart 1 tab Q4HP PRN PO 06/17/24 08:00 06/19/24 06:51 1 TAB Ondansetron HCl 4 mg Q4HP PRN IV 06/17/24 08:00 Acetaminophen 650 mg Q6HP PRN PO 06/17/24 08:00 Diagnostic Test (Pha) 1 strip ACHS 06/17/24 11:30 06/19/24 06:40 1 STRIP Insulin Human Regular ACHS SC 06/17/24 11:30 06/18/24 23:18 3 UNITS Dextrose 50 ml UD PRN IV 06/17/24 08:00 Carbamazepine 200 mg QID PO 06/17/24 12:00 06/19/24 06:40 200 MG Carvedilol 3.125 mg DAILY PO 06/17/24 10:00 06/19/24 10:11 3.125 MG Clopidogrel Bisulfate 75 mg DAILY PO 06/17/24 10:00 06/19/24 10:09 75 MG Gabapentin 300 mg BID PO 06/17/24 10:00 06/19/24 10:10 300 MG Montelukast Sodium 10 mg DAILY PO 06/17/24 10:00 06/19/24 10:10 10 MG Amlodipine Besylate 10 mg DAILY PO 06/17/24 10:00 06/18/24 11:09 10 MG Atorvastatin Calcium 40 mg HS PO 06/17/24 22:00 06/18/24 23:09 40 MG Pantoprazole Sodium 40 mg DAILY IV 06/17/24 15:15 06/19/24 10:09 40 MG Ceftriaxone Sodium 50 ml @ 100 mls/hr DAILY@09 IV 06/19/24 09:00 06/19/24 10:13 100 MLS/HR Multivitamins 1 tab DAILY PO 06/19/24 10:00 06/19/24 10:10 1 TAB Enteral Nutritional Formula 240 ml BIDWM PO 06/18/24 18:00 Cancel Enteral Nutritional Formula 240 ml BIDWM PO 06/18/24 18:00 06/19/24 08:18 240 ML Doxycycline Hyclate 100 ml @ 50 mls/hr Q12HR IV 06/18/24 22:00 06/18/24 23:11 50 MLS/HR Albuterol 2.5 mg Q6HWA [facility] 06/18/24 18:00 06/19/24 05:56 2.5 MG Ipratropium [place] 0.5 mg Q6HWA [facility] 06/18/24 18:00 06/19/24 05:56 0.5 MG Emollient Ointment 1 applic PRN PRN TOP 06/18/24 17:15 Examination: GENERAL:Normal, CVS:Normal laboratory and microbiology Laboratory Tests 06/19/24 06:39 Test 06/19/24 06:39 Range/Units Serum Glucose 84 74-106 mg/dL Microbiology Date/Time Source Procedure Growth Status 06/17/24 19:45 Nose MRSA Screen - Final Methicillin Resistant S.aureus Complete 06/17/24 01:20 Urine - [place] Urine Culture - Preliminary Resulted 06/16/24 21:59 Blood Blood Culture - Preliminary NO GROWTH AFTER 48 HOURS OF INCUBATION. Resulted Problem List/Assessment/Plan Problem List/Assessment/Plan MARILIN due to hypotension ; prerenal ckd baseline unknown hx of DM type 2 PNA close monitoring renal function slow improvement infection w/u as per primary team Plan discussed with: Patient FORTINO BLACKMON MD Jun 19, 2024 11:10
--- NOTE | 2024-06-19 15:13 | DVHPNRES ---
Progress Note Date Seen: Jun 19, 2024 Resident Creating Document: LEÓN HWANG PATRICK Has the PT tested + for MRSA If YES, has PT been informed?: No Medical Necessity Reason Pt with a Central, PICC or Fol: No Subjective Review of Systems Patient seen and examined at the bedside with the patient is feeling better since admission. Was still complaining of shortness of breath, cough and generalized weakness. Patient reports: No new complaints, Feels better Changes from previous H/P or p: Changes Objective vital signs Vital Sign Date Time Temp Pulse Resp B/P (MAP) Pulse Ox O2 Delivery O2 Flow Rate FiO2 06/19/24 12:29 105/36 06/19/24 11:23 78 18 100 06/19/24 11:17 Room Air 0.0 06/19/24 11:17 21 06/19/24 09:00 97.5 97.5 Total Intake and Output 06/18/24 06/18/24 06/19/24 15:00 23:00 07:00 Intake Total 1069 ml 525 ml 600 ml Output Total 400 ml Balance 1069 ml 125 ml 600 ml medications Current Medications Medications Dose Ordered Sig/Martita Route Start Time Stop Time Status Last Admin Dose Admin Acetaminophen/ Hydrocodone Bitart 1 tab Q4HP PRN PO 06/17/24 08:00 06/19/24 06:51 1 TAB Ondansetron HCl 4 mg Q4HP PRN IV 06/17/24 08:00 Acetaminophen 650 mg Q6HP PRN PO 06/17/24 08:00 Diagnostic Test (Pha) 1 strip ACHS 06/17/24 11:30 06/19/24 11:30 1 STRIP Insulin Human Regular ACHS SC 06/17/24 11:30 06/19/24 12:44 2 UNITS Dextrose 50 ml UD PRN IV 06/17/24 08:00 Carbamazepine 200 mg QID PO 06/17/24 12:00 06/19/24 12:28 200 MG Carvedilol 3.125 mg DAILY PO 06/17/24 10:00 06/19/24 10:11 3.125 MG Clopidogrel Bisulfate 75 mg DAILY PO 06/17/24 10:00 06/19/24 10:09 75 MG Gabapentin 300 mg BID PO 06/17/24 10:00 06/19/24 10:10 300 MG Montelukast Sodium 10 mg DAILY PO 06/17/24 10:00 06/19/24 10:10 10 MG Amlodipine Besylate 10 mg DAILY PO 06/17/24 10:00 06/19/24 12:29 10 MG Atorvastatin Calcium 40 mg HS PO 06/17/24 22:00 06/18/24 23:09 40 MG Pantoprazole Sodium 40 mg DAILY IV 06/17/24 15:15 06/19/24 10:09 40 MG Ceftriaxone Sodium 50 ml @ 100 mls/hr DAILY@09 IV 06/19/24 09:00 06/19/24 10:13 100 MLS/HR Multivitamins 1 tab DAILY PO 06/19/24 10:00 06/19/24 10:10 1 TAB Enteral Nutritional Formula 240 ml BIDWM PO 06/18/24 18:00 Cancel Enteral Nutritional Formula 240 ml BIDWM PO 06/18/24 18:00 06/19/24 08:18 240 ML Doxycycline Hyclate 100 ml @ 50 mls/hr Q12HR IV 06/18/24 22:00 06/19/24 12:36 50 MLS/HR Albuterol 2.5 mg Q6HWA NEB 06/18/24 18:00 06/19/24 11:17 2.5 MG Ipratropium [place] 0.5 mg Q6HWA NEB 06/18/24 18:00 06/19/24 11:17 0.5 MG Emollient Ointment 1 applic PRN PRN TOP 06/18/24 17:15 Examination General Appearance: Alert, Oriented to place and person, disoriented to time. HEENT: Atraumatic, PERRLA, EOMI, Mucous membrane moist/pink Respiratory: Clear to auscultation, Normal air movement Cardiovascular: Regular rate, Normal S1, Normal S2, No murmurs, no chest wall tenderness Abdominal: Normal bowel sounds, Soft, No tenderness, No hepatospenomegaly, No masses Extremities: No clubbing, No cyanosis, No edema, Normal pulses, No tenderness/swelling Skin: Bilateral lower limb are scaly, left lower limb is swollen and red with diffuse petechial/purpuric lesions laboratory and microbiology Laboratory Tests 06/19/24 06:39 Test 06/19/24 06:39 Range/Units Serum Glucose 84 74-106 mg/dL Microbiology Date/Time Source Procedure Growth Status 06/17/24 19:45 Nose MRSA Screen - Final Methicillin Resistant S.aureus Complete 06/17/24 01:20 Urine - [place] Urine Culture - Preliminary Resulted 06/16/24 21:59 Blood Blood Culture - Preliminary NO GROWTH AFTER 48 HOURS OF INCUBATION. Resulted Labs and/or images reviewed: Labs reviewed by me, Image(s) reviewed by me Problem List/Assessment/Plan Problem List/Assessment/Plan Acute metabolic encephalopathy, likely due to pneumonia Pneumonia, due to methicillin-resistant Staphylococcus aureus Esophageal hernia Peripheral artery disease Dyslipidemia Hypertension Chest CT scan shows, Subtle nodular ground-glass opacity of the right lower lobe could be infectious or inflammatory process with Small esophageal hiatal hernia Duplex ultrasound shows, 30-49% stenosis in the right common femoral artery, 50-75% stenosis in the common femoral artery, 50-75% stenosis in the left mid superficial femoral artery, 50-75% stenosis in the left popliteal artery His CT scan shows no acute intracranial abnormalities MRSA nares positive Empiric antibiotic of ceftriaxone and doxycycline IV fluid Breathing treatment Diabetes type 2 Insulin regular according to sliding scale Seizure Continue home med MARILIN and CKD, likely VMN, baseline not available Nephro on the board, recommended medical management DIET: Cardiac DVT PROPHYLAXIS: Lovenox CODE STATUS: Goal of care discussed for more than 18 minutes, full code DISPOSITION: Med/surge Patient's status and plan discussed with the patient and the patient's daughter through the phone. Case discussed with Dr. Rodarte. Plan discussed with: Patient, Other (RN) My Orders My Orders Orders - LEÓN HWANG RESDILALO Procedure Category Date Status Time Apply Z-Guard ED 06/18/24 In Process 11:50 Doxycycline PHA 06/18/24 In Process 100mg/100ml 22:00 Albuterol Medneb PHA 06/18/24 In Process (Ventolin Medneb) 18:00 Ipratropium Medneb PHA 06/18/24 In Process (Atrovent Medneb) 18:00 Petrolatum PHA 06/18/24 In Process (Emollient) (Vaseline 17:15 Covid19 Antigen [facility] LAB 06/19/24 Logged Rapid Influenza A&B LAB 06/19/24 Logged 06:52 Drug Screen LAB 06/19/24 Logged 11:35 * Document Control Coordinator CONS 06/19/24 Transmitted Consult Date of Service: Jun 19, 2024 Billing Provider: ALEXANDER SOTO MD Common Visit Codes: [id number] INP/OBS CARE(HIGH) LEÓN HWANG RESDILALO Jun 19, 2024 15:13 ALEXANDER SOTO MD Jun 21, 2024 00:57
[2024-06-19] MEDS: SODIUM CHLORIDE 0.9% 1,000 ML IV ONE (15:24)
[2024-06-19] MEDS: MUPIROCIN 2% OINT 15gm or 22gm FOR MRSA NARES EACHNOSTRI SCH (23:46)
[2024-06-20] VITALS (15 sets, daily range): BP systolic 104–131; BP diastolic 42–64; PULSE 56–117; RESP 16–20; TEMP 97–98.7; O2SAT 92–100
[2024-06-20 01:38] LABS: Opiate Scree,Urine Neg (NEGATIVE)
[2024-06-20 02:01] LABS: Amphetamine Screen, Urine Neg (NEGATIVE); Barbiturate Scree,Urine Neg (NEGATIVE); Benzodiazephine Screen, Urine Neg (NEGATIVE); Cannabinoid Screen, Urine Neg (NEGATIVE); Cocaine Screen, Urine Neg (NEGATIVE); Phencyclidine Screen, Urine Neg (NEGATIVE)
[2024-06-20 02:03] LABS: Rapid Influenza A Negative (Negative); Rapid Influenza B Negative (Negative)
[2024-06-20 02:04] LABS: COVID19 ANTIGEN SOFIA FIA NEGATIVE (NEGATIVE)
[2024-06-20 06:06] LABS: Basophils # (auto) 0.1 10 ^3/uL (0-0.2); Eosinophils # (auto) 0.4 10 ^3/uL (0-0.8); Eosinophils % (auto) 5.3 % (0.0-7.0); Hematocrit 26.3 % (36.0-46.0); Hemoglobin 8.9 g/dL (12.2-16.2); Lymphocytes # (auto) 1.5 10 ^3/uL (0.4-5.4); Lymphocytes % (auto) 20.6 % (10.0-50.0); Mean Corpuscular Hgb Conc. 33.8 g/dL (32.0-36.0); Mean Corpuscular Volume 100.7 fL (80.0-100.0); Monocytes # (auto) 0.5 10 ^3/uL (0-1.3); Monocytes % (auto) 7.5 % (0.0-12.0); Neutrophils # (auto) 4.8 10 ^3/uL (1.6-8.6); Neutrophils % (auto) 65.6 % (37.0-80.0); Nucleated Red Blood Cells % 0.1 %; Platelet Count (auto) 277 10^3/uL (140-450); Red Blood Cells 2.61 10^6/uL (4.0-5.20); Red Cell Distribution Width 15.6 % (11.8-14.3); White Blood Cell 7.2 10^3/uL (4.4-10.8)
[2024-06-20 06:27] LABS: Alanine Aminotransferase 14 U/L (7-40); Alkaline Phosphatase 111 U/L (46-116); Anion Gap 8 (5-15); Aspartate Aminotransferase 20 U/L (13-40); BUN/Creatinine Ratio 18.6 (10.0-20.0); Calcium 8.9 mg/dL (8.7-10.4); Glucose 98 mg/dL (74-106); Sodium 138 mmol/L (136-145); Total Protein 6.4 g/dL (5.7-8.2)
[2024-06-20 06:30] LABS: Bilirubin, Total 0.2 mg/dL (0.2-1.0); Blood Urea Nitrogen 37 mg/dL (9-23); Carbon Dioxide 17 mmol/L (20-31); Chloride 113 mmol/L (98-107); Potassium 5.2 mmol/L (3.5-5.1)
[2024-06-20] MEDS: ALBUTEROL SULF 2.5 MG/0.5ML(0.5%) NEB SOLN NEB ONE (07:28)
[2024-06-20] MEDS ORDERED: DOCUSATE SOD 100 MG CAP PO PRN (07:45)
[2024-06-20] MEDS: DULoxetine HCL 30 MG CAP PO ONE (08:49)
[2024-06-20] MEDS: DOCUSATE SOD 100 MG CAP PO ONE (08:49)
[2024-06-20] MEDS: ACETAMINOPHEN 325 MG TAB PO PRN (08:57)
[2024-06-20 09:19] LABS: % Iron Saturation 20.5 % (15-50)
[2024-06-20 09:23] LABS: Ferritin 38.4 ng/mL (10-291)
--- NOTE | 2024-06-20 10:55 | DVHPN2 ---
Progress Note Date Seen: Jun 20, 2024 Has the PT tested + for MRSA If YES, has PT been informed?: No Medical Necessity Reason Pt with a Central, PICC or Fol: No Objective vital signs Vital Sign Date Time Temp Pulse Resp B/P (MAP) Pulse Ox O2 Delivery O2 Flow Rate FiO2 06/20/24 09:34 107/63 06/20/24 09:34 80 06/20/24 09:00 97.4 20 96 97.4 06/20/24 08:00 Room Air* 0 21 Total Intake and Output 06/19/24 06/19/24 06/20/24 15:00 23:00 07:00 Intake Total 150 ml 1117.5 ml 400 ml Balance 150 ml 1117.5 ml 400 ml medications Current Medications Medications Dose Ordered Sig/Martita Route Start Time Stop Time Status Last Admin Dose Admin Acetaminophen/ Hydrocodone Bitart 1 tab Q4HP PRN PO 06/17/24 08:00 06/20/24 05:44 1 TAB Ondansetron HCl 4 mg Q4HP PRN IV 06/17/24 08:00 Acetaminophen 650 mg Q6HP PRN PO 06/17/24 08:00 06/20/24 08:57 650 MG Diagnostic Test (Pha) 1 strip ACHS 06/17/24 11:30 06/20/24 05:45 1 STRIP Insulin Human Regular ACHS SC 06/17/24 11:30 06/19/24 23:44 2 UNITS Dextrose 50 ml UD PRN IV 06/17/24 08:00 Carbamazepine 200 mg QID PO 06/17/24 12:00 06/20/24 05:44 200 MG Carvedilol 3.125 mg DAILY PO 06/17/24 10:00 06/20/24 09:34 3.125 MG Clopidogrel Bisulfate 75 mg DAILY PO 06/17/24 10:00 06/20/24 08:57 75 MG Gabapentin 300 mg BID PO 06/17/24 10:00 06/20/24 08:58 300 MG Montelukast Sodium 10 mg DAILY PO 06/17/24 10:00 06/20/24 08:58 10 MG Amlodipine Besylate 10 mg DAILY PO 06/17/24 10:00 06/20/24 09:34 10 MG Atorvastatin Calcium 40 mg HS PO 06/17/24 22:00 06/19/24 22:39 40 MG Pantoprazole Sodium 40 mg DAILY IV 06/17/24 15:15 06/20/24 08:57 40 MG Ceftriaxone Sodium 50 ml @ 100 mls/hr DAILY@09 IV 06/19/24 09:00 06/20/24 08:57 100 MLS/HR Multivitamins 1 tab DAILY PO 06/19/24 10:00 06/20/24 08:58 1 TAB Enteral Nutritional Formula 240 ml BIDWM PO 06/18/24 18:00 Cancel Enteral Nutritional Formula 240 ml BIDWM PO 06/18/24 18:00 06/20/24 08:00 240 ML Doxycycline Hyclate 100 ml @ 50 mls/hr Q12HR IV 06/18/24 22:00 06/19/24 22:39 50 MLS/HR Albuterol 2.5 mg Q6HWA [facility] 06/18/24 18:00 06/20/24 06:01 2.5 MG Ipratropium [place] 0.5 mg Q6HWA NEB 06/18/24 18:00 06/20/24 06:01 0.5 MG Emollient Ointment 1 applic PRN PRN TOP 06/18/24 17:15 Mupirocin 1 applic BID EACHNOSTRI 06/19/24 22:00 06/24/24 21:59 06/20/24 09:34 1 APPLIC Duloxetine HCl 30 mg DAILY PO 06/21/24 10:00 Docusate Sodium 100 mg DAILYPRN PRN PO 06/20/24 07:45 Examination: GENERAL:Normal, CVS:Normal laboratory and microbiology Laboratory Tests 06/20/24 05:21 Test 06/20/24 05:21 Range/Units Serum Glucose 98 74-106 mg/dL Microbiology Date/Time Source Procedure Growth Status 06/17/24 19:45 Nose MRSA Screen - Final Methicillin Resistant S.aureus Complete 06/17/24 01:20 Urine - [place] Urine Culture - Preliminary Resulted 06/16/24 21:59 Blood Blood Culture - Preliminary NO GROWTH AFTER 72 HOURS OF INCUBATION. Resulted Problem List/Assessment/Plan Problem List/Assessment/Plan MARILIN due to hypotension ; prerenal ckd baseline unknown hx of DM type 2 PNA metabolic acidosis hyperkalemia start sodium bicarbonate IV monitor UOP US shows no obstruction close monitoring renal function slow improvement infection w/u as per primary team Plan discussed with: Patient My Orders My Orders Orders - FORTINO BLACKMON MD Procedure Category Date Status Time Basic Metabolic Panel LAB 06/21/24 Verified 04:00 D5 W Sodium PHA 06/20/24 Transmitted Bicarbonate Drip 11:00 FORTINO BLACKMON MD Jun 20, 2024 10:55
[2024-06-20] MEDS: SODIUM BICARB 50mEq/50ml Vial 150 ML in D5W 5% 1,000 ML IV SCH (12:25)
--- NOTE | 2024-06-20 14:51 | DVHDSRES ---
Discharge Summary Date of Admission Resident Creating Document: LEÓN HWANG RESDIENT Jun 17, 2024 at 07:50 Date of Discharge: Jun 20, 2024 Admitting Diagnosis ALOC Labs/Diagnostic Data: Laboratory Results Test 06/20/24 11:31 06/20/24 05:21 06/19/24 23:00 06/19/24 06:39 POC Glucose 120 mg/dl (70-106) White Blood Count 7.2 10^3/uL (4.4-10.8) Red Blood Count 2.61 10^6/uL (4.0-5.20) Hemoglobin 8.9 g/dL (12.2-16.2) Hematocrit 26.3 % (36.0-46.0) Mean Corpuscular Volume 100.7 fL (80.0-100.0) Mean Corpuscular Hemoglobin 34.0 pg (28.0-32.0) Mean Corpuscular Hemoglobin Concent 33.8 g/dL (32.0-36.0) Red Cell Distribution Width 15.6 % (11.8-14.3) Platelet Count 277 10^3/uL (140-450) Mean Platelet Volume 7.3 fL (6.9-10.8) Neutrophils (%) (Auto) 65.6 % (37.0-80.0) Lymphocytes (%) (Auto) 20.6 % (10.0-50.0) Monocytes (%) (Auto) 7.5 % (0.0-12.0) Eosinophils (%) (Auto) 5.3 % (0.0-7.0) Basophils (%) (Auto) 1.0 % (0.0-2.0) Neutrophils # (Auto) 4.8 10 ^3/uL (1.6-8.6) Lymphocytes # (Auto) 1.5 10 ^3/uL (0.4-5.4) Monocytes # (Auto) 0.5 10 ^3/uL (0-1.3) Eosinophils # (Auto) 0.4 10 ^3/uL (0-0.8) Basophils # (Auto) 0.1 10 ^3/uL (0-0.2) Nucleated Red Blood Cells 0.1 % Sodium Level 138 mmol/L (136-145) Potassium Level 5.2 mmol/L (3.5-5.1) Chloride Level 113 mmol/L (98-107) Carbon Dioxide Level 17 mmol/L (20-31) Anion Gap 8 (5-15) Blood Urea Nitrogen 37 mg/dL (9-23) Creatinine 1.99 mg/dL (0.550-1.02) Glomerular Filtration Rate Calc 26 mL/min (>90) BUN/Creatinine Ratio 18.6 (10.0-20.0) Serum Glucose 98 mg/dL (74-106) Calcium Level 8.9 mg/dL (8.7-10.4) Iron Level 42 ug/dL (50-170) Total Iron Binding Capacity 205 ug/dL (250-425) Percent Iron Saturation 20.5 % (15-50) Ferritin 38.4 ng/mL (10-291) Total Bilirubin 0.2 mg/dL (0.2-1.0) Aspartate Amino Transferase (AST) 20 U/L (13-40) Alanine Aminotransferase (ALT) 14 U/L (7-40) Alkaline Phosphatase 111 U/L (46-116) Total Protein 6.4 g/dL (5.7-8.2) Albumin 3.0 g/dL (3.2-4.8) Vitamin B12 Level 620 pg/mL (211-911) Urine Opiates Screen Neg (NEGATIVE) Urine Fentanyl Screen Neg (NEGATIVE) Urine Barbiturates Screen Neg (NEGATIVE) Urine Phencyclidine Screen Neg (NEGATIVE) Urine Amphetamines Screen Neg (NEGATIVE) Urine Benzodiazepines Screen Neg (NEGATIVE) Urine Cocaine Screen Neg (NEGATIVE) Urine Cannabinoids Screen Neg (NEGATIVE) Influenza Type A Antigen Negative (Negative) Influenza Type B Antigen Negative (Negative) SARS-CoV-2 Antigen (Rapid) Negative (NEGATIVE) Prothrombin Time 10.7 sec (9.3-11.8) Prothrombin Time INR 1.01 (0.9-1.15) Activated Partial Thromboplast Time 24.8 SEC (24.5-34.5) Vitamin D 25-Hydroxy 34.6 ng/mL (30.0-100) Random Vancomycin Level 9.4 ug/mL (5-10) Test 06/18/24 15:01 06/18/24 06:30 06/17/24 01:20 06/16/24 22:54 Ammonia < 10 umol/L (11-32) Uric Acid 9.5 mg/dL (3.1-7.8) Phosphorus Level 3.3 mg/dL (2.4-5.1) Magnesium Level 2.1 mg/dL (1.6-2.6) Thyroid Stimulating Hormone (TSH) 1.99 uIU/mL (0.55-4.78) Urine Color Yellow (Yellow) Urine Clarity Clear (Clear) Urine pH 5.5 (5.0-9.0) Urine Specific [place] 1.018 (1.001-1.035) Urine Protein 1+ (Negative) Urine Ketones Negative (Negative) Urine Blood Negative /uL (Negative) Urine Nitrite Negative (Negative) Urine Bilirubin Negative (Negative) Urine Urobilinogen Normal mg/dL (Negative) Urine Leukocyte Esterase Negative /uL (Negative) Urine RBC None seen /hpf (0 - 4) Urine Microscopic WBC 1 /HPF (0-5) Urine Squamous Epithelial Cells Few /hpf (<5) Urine Bacteria None seen /hpf (None Seen) Urine Creatinine 97.12 mg/dL (30.0-125.0) Urine Sodium 65 mmol/L (40-220) Urine Glucose Normal mg/dL (Normal) Urine Total Protein 99.5 mg/dL (1-14) Troponin I High Sensitivity 11 ng/L (</=34) Test 06/16/24 21:59 Hemoglobin A1c 5.2 % A1C (<5.7) Lactic Acid Level 1.1 mmol/L (0.4-2.0) Other Laboratory Tests 06/20/24 05:21 Brief Hx & Hospital Course: This is a 69-year-old female with past medical history of hypertension, seizure, dyslipidemia, diabetes type 2, COPD came to the hospital due to altered mental status with decreased oral intake. Patient's hpxikuhz-he-nyp, the patient has been altered and decreased oral intake cyst 3 days. She also reports of shortness of breath, cough, generalized weakness and fatigue. Patient at baseline is wheelchair-bound and needs help for daily activity. Patient is altered and reports that she is in the hospital due to an ulcer on the right foot. She denies fever, chest pain, nausea, vomiting, or any recent bowel or bladder habit changes. PMHx: hypertension, seizure, dyslipidemia, diabetes type 2, COPD PSHx: Brain surgery due to brain aneurysm status post clip Family history: Noncontributing Social history: Patient is wheelchair-bound, lives with the son at home, denies smoking or any drug use. Home medication: Amlodipine 10 mg, atorvastatin, aspirin, clopidogrel, albuterol, montelukast, carvedilol, carbamazepine and gabapentin Allergic history: [facility] Hospital course: Patient was admitted at the line of encephalopathy secondary to pneumonia with the patient was given empiric antibiotic of ceftriaxone and doxycycline, and IV fluid. MRSA nares, is positive and the patient was also given local mupirocin. Due to raised creatinine, Nephrology was consulted and recommended medical management. Bilateral lower limb Doppler ultrasound performed, showed Duplex ultrasound shows, 30-49% stenosis in the right common femoral artery, 50-75% stenosis in the common femoral artery, 50-75% stenosis in the left mid superficial femoral artery, 50-75% stenosis in the left popliteal artery, patient was given atorvastatin. Home medicine we continued. On 06/20 24, the patient was feeling better since admission. Discharge plan discussed with the patient and the patient discharged home. Discharge plan: Follow up with the PCP within 1 week of the discharge. Doxycycline 100 mg b.i.d. for 7 days Jjzzlnbuzsesslq-rcdtaauz-srmdmrg lotion topical for legs twice daily Continue home meds Operations or Procedures [place] [address] Ph: [phone] DIAGNOSTIC IMAGING Diagnostic Imaging Report : [id number] Signed PATIENT: MADELYN FULLER ACCT: [id number] UNIT: [id number] : 1955 [facility] ROOM / BED: [facility] / A AGE / SEX: 69 / F ADM STATUS: ADM IN SERVICE 1026 ORDERING PHYSICIAN: LEÓN HWANG PROCEDURE(s): BLEAD - BiLat Low Ext Art Duplex REASON: PAD? ORDER NUMBER(s): [id number], ACCESSION NUMBER(s): [id number] BILATERAL Lower Extremity Arterial Duplex Date: 06/18/2024 10:58 AM Clinical History: PAD Comparison: None Technique: Duplex Doppler evaluation including color Doppler and spectral/pulsed waveform analysis of the lower extremity arteries was performed. Finding: RIGHT: Peak systolic velocities are as follows: FUNCTIONAL DIRECTOR 183 cm/s triphasic waveform 30-49% stenosis Deep femoral 174 cm/s triphasic waveform 30-40% stenosis SFA proximal 154 cm/s triphasic waveform 30-49% stenosis SFA mid-portion 133 cm/s biphasic waveform SFA distal 83 cm/s monophasic waveform Popliteal 55 cm/s monophasic waveform Posterior tibial 17 cm/s monophasic Anterior tibial 126 cm/s monophasic Dorsalis pedis 27 cm/s monophasic waveform The waveforms are triphasic and biphasic waveform to the mid superficial femoral artery. Monophasic waveform distal to that level. LEFT: Peak systolic velocities are as follows: FUNCTIONAL DIRECTOR 228 cm/s triphasic waveform 50-75% stenosis Deep femoral 132 cm/s biphasic waveform SFA proximal 139 cm/s biphasic waveform SFA mid-portion 170 cm/s biphasic waveform SFA distal 74 cm/s biphasic waveform Popliteal 268 cm/s biphasic waveform 50-75% stenosis Posterior tibial 60 cm/s biphasic waveform Anterior tibial 38 cm/s biphasic waveform Dorsalis pedis 47 cm/s monophasic waveform The waveforms are triphasic and biphasic waveform. Monophasic waveform in the dorsalis pedis. REFERENCE VALUES, [facility] ([facility]) vascular Imaging Lab Criteria: Peak systolic velocity ranges (in cm/sec) are as follows: <150 cm/s - <20 % stenosis 150-200 cm/s - 20-49% stenosis 200-300 cm/s - 50-75% stenosis >300 cm/s -> 75% stenosis IMPRESSION: 1. There is 30-49% stenosis in the right common femoral artery deep femoral artery and mid superficial femoral artery. Monophasic waveform in the right superficial femoral artery proximally and monophasic waveform to the dorsalis pedis on the right 2. On the left there is 50-75% stenosis in the common femoral artery. 3. There is 50-75% stenosis in the left mid superficial femoral artery 4. There is 50-75% stenosis in the left popliteal artery 5. The arteries are calcified bilaterally throughout. 6. No significant focal stenosis is identified. There is no evidence for peripheral vascular insufficiency in the left lower extremity. 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 Medications: Doxycycline 100 mg b.i.d. for 7 days Ywmnsionhnfxail-aicjhjtj-gczvezk lotion topical for legs twice daily Discharge Statement: "Patient was advised to return to the ER or call 911 if any headaches, dizziness, shortness of breath, chest pain, abdominal pain, bleeding, fevers, or worsening of medical condition. Patient was counseled about treatment plan, medications, possible side effects, patientverbalized understanding. All questions were answered to the best of my ability. This discharge took greater then 30 minutes in planning, reviewing documentation, counseling the patient, and discussing with other team members." ASSESSMENT ASSESSMENT Assessment Pneumonia Date of Service: Jun 20, 2024 Billing Provider: ALEXANDER SOTO MD Common Visit Codes: [id number] DISCH DAY >30min LEÓN HWANG Jun 20, 2024 14:51 ALEXANDER SOTO MD Jun 21, 2024 01:09
[2024-06-20] MEDS: CALCIUM GLUC 1,000mg/50ml-NS 50 ML IV ONE (15:09)
[2024-06-20] MEDS ORDERED: DOXY-286 PO (15:35)
[2024-06-20] MEDS ORDERED: ASPI81CH49 PO (15:35)
[2024-06-20] MEDS ORDERED: [UNRECOGNIZED DRUG - CODE] TOP (15:35)
[2024-06-20] MEDS: IRON SUCROSE COMPLEX 110 ML IV SCH (16:21)
[2024-06-21] MEDS ORDERED: DULoxetine HCL 30 MG CAP PO SCH (10:00)
== END 2024-06-20 20:15 | disposition home or self-care (01) | DRG 177 ==
LOC: EDBD 21:10 → ER 21:10 → OVERFLOW 06-17 07:50 → WEST WING 06-17 16:15 → CENTRAL 06-18 17:48
PROVIDERS: ADMIT Student in an Organized Health Care Education/Training Program; ATTEND Internal Medicine
PROC: 05HB33Z Insertion of Infusion Device into Right Basilic Vein, Percutaneous Approach (ICD-10-PCS; principal; 2024-06-18)
PROC: B54MZZA Ultrasonography of Right Upper Extremity Veins, Guidance (ICD-10-PCS; 2024-06-18)
DX: J15.212 Pneumonia due to Methicillin resistant Staphylococcus aureus (principal); G93.41 Metabolic encephalopathy; N17.0 Acute kidney failure with tubular necrosis; E87.20 Acidosis, unspecified; E44.0 Moderate protein-calorie malnutrition; L03.116 Cellulitis of left lower limb; D64.9 Anemia, unspecified; E66.9 Obesity, unspecified; R56.9 Unspecified convulsions; I73.81 Erythromelalgia; Z20.822 Contact with and (suspected) exposure to COVID-19; K44.9 Diaphragmatic hernia without obstruction or gangrene; Z68.32 Body mass index [BMI] 32.0-32.9, adult; I12.9 Hypertensive chronic kidney disease with stage 1 through stage 4 chronic kidney disease, or unspecified chronic kidney disease; E87.5 Hyperkalemia; N18.9 Chronic kidney disease, unspecified; E11.22 Type 2 diabetes mellitus with diabetic chronic kidney disease; E78.5 Hyperlipidemia, unspecified; J44.9 Chronic obstructive pulmonary disease, unspecified; Z88.8 Allergy status to other drugs, medicaments and biological substances; Z79.84 Long term (current) use of oral hypoglycemic drugs; Z79.82 Long term (current) use of aspirin
CPT/HCPCS: 36415; 70450; 71045; 71250; 76775; 80053; 80202; 80307; 81001; 82140; 82306; 82570; 82607; 82728; 82962; 83036; 83540; 83550; 83605; 83735; 84100; 84156; 84300; 84443; 84484; 84550; 85025; 85610; 85730; 87040; 87081; 87086; 87426; 87804; 93005; 93925; 93970; 94640; 96361; 96365; 97163; 99291; G0378; J1756; J1815; J2470

== ENCOUNTER 2024-06-27 00:28 | Inpatient (IN) | payer OTHER, MEDICAID ==
[~2024-06-27] VITALS: Ht 182.9 cm; Wt 99.2 kg
[2024-06-27] VITALS (7 sets, daily range): BP systolic 128–137; BP diastolic 34–66; PULSE 69–92; RESP 12–20; TEMP 97.8–98; O2SAT 95–100
[~2024-06-27 00:28] MED LIST: ALBU108A5 PO; ALLO100T PO; AMLO1TAB23 PO; ASPI1CHW5 PO; ASPI81CH49 PO; ATOR40TA52; CARB200T4 PO; CARV3.1240 PO; CEPH500C PO; CLOP75TA70 PO; DOXY-286 PO; FURO40TA4 PO; GABA-1250 PO; MONT-8 PO; [UNRECOGNIZED DRUG - CODE] TOP
--- NOTE | 2024-06-27 01:30 | ED.PDOC ---
History of Present Illness HPI Comments 69 y/o F presents with daughter for c/o shortness of breath and generalized weakness, today. Patient reports on progressively worsening symptoms following initial onset after being discharged from [facility] on 06/20/24 for acute encephalopathy. She endorses on being found with PNA during said admission but never had her antibiotics sent to her pharmacy for collection. She contacted her PCP, today, and was advised to come to the ED for for higher level of care. Denies any chest pain, cough, congestion, fever, chills, or other associated symptoms at this time. Upon arrival to ED, patient was found with a SpO2 of 86%RA. Chief Complaint: General Weakness Time Seen by MD: 01:10 Reviewed Notes: Nurses Notes, Medications, Allergies Allergies: Coded Allergies: Felbamate (Verified Allergy, Unknown, 06/16/24) Methylphenidate (Verified Allergy, Unknown, 06/27/24) Phenobarbital (Verified Allergy, Unknown, 06/27/24) Home Meds Active Scripts Aspirin (Aspirin) 81 Mg Chw, 81 MG PO DAILY for 30 Days, #60 TAB.CHEW 1 Refill Prov:LEÓN HWANG RESDIENT 06/20/24 Fjebqcpdieolyqa-Fpifmybl-Udlqn (Caladryl) 240 Ml Tp, 240 ML TOP BID for 30 Days, #1 EA 1 Refill Prov:LEÓN HWANG RESDIENT 06/20/24 Doxycycline Hyclate (DOXYCYCLINE HYCLATE) 100 Mg Tab, 100 MG PO BID for 7 Days, #14 TAB Prov:ELÓN HWANG RESDIENT 06/20/24 Reported Medications Aspirin (Chewable Aspirin) 81 Mg Chw, 1 TAB PO DAILY 06/18/24 Albuterol Sulfate (Albuterol Sulfate Hfa) 108 Mcg/Act Aer, 2 PUFF PO Q4HPRN PRN for SHORTNESS OF BREATH 06/18/24 Cephalexin Monohydrate (Cephalexin) 500 Mg Cap, 1 CAP PO QID 06/18/24 Atorvastatin Calcium (ATORVASTATIN CALCIUM) 40 Mg Tab 06/17/24 Gabapentin (Gabapentin) 300 Mg Cap, 1 CAP PO BID 06/17/24 Amlodipine Besylate (Amlodipine Besylate) 10 Mg Tab, 1 TAB PO DAILY 06/17/24 Montelukast Sodium (MONTELUKAST SODIUM) 10 Mg Tab, 1 TAB PO DAILY 06/17/24 Carbamazepine (Carbamazepine) 200 Mg Tab, 1 TAB PO QID 06/17/24 Clopidogrel Bisulfate (CLOPIDOGREL) 75 Mg Tab, 1 TAB PO DAILY 06/17/24 Furosemide (Furosemide) 40 Mg Tab, 1 TAB PO BID 06/17/24 Carvedilol (Carvedilol) 3.125 Mg Tab, 1 TAB PO 06/17/24 Allopurinol (Allopurinol) 100 Mg Tab, 1 TAB PO DAILY 06/17/24 Information Source: Patient, Relative Mode of Arrival: Wheelchair Severity: Moderate Timing: Days Duration: Since onset Prehospital treatment: None Past Medical History PAST MEDICAL HISTORY: Anemia, CKF, COPD, DM (II), High Lipids, HTN, Seizures Past Medical History (Other): Esophageal hernia Peripheral artery disease MARILIN hyperkalemia Cellulitis of lower limb Obesity, grade 1 Pneumonia, due to methicillin-resistant Staphylococcus aureus Surgical History (Other): Brain surgery due to brain aneurysm status post clip [employer] History: Denies all [employer] Hx Family History Family History: Reviewed,noncontributory to illness Social History Smoker: Non-Smoker Alcohol: Denies ETOH Use Drugs: Denies Drug Use Lives In: Home (Patient is wheelchair-bound, lives with the son at home), Assisted Care All Other Systems: Reviewed and Negative (Comprehensive systems review obtained and negative except for what is stated in the HPI.) Physical Exam General Appearance: No Apparent Distress, Obese, Other (lethargic ) HEENT: Normal ENT Inspection, Pharynx Normal, TMs Normal Neck: Full Range of Motion, Non-Tender, Normal, Normal Inspection Respiratory: Chest Non-Tender, Lungs Clear, No Accessory Muscle Use, No Respiratory Distress, Other (tachypneic ) Cardiovascular: No Edema, No JVD, No Murmur, No Gallop, Normal Peripheral Pulses, Regular Rate/Rhythm Breast Exam: Deferred Gastrointestinal: No Organomegaly, Non Tender, No Pulsatile Mass, Normal Bowel Sounds, Soft Genitalia: Deferred Pelvic: Deferred Rectal: Deferred Extremities: No calf tenderness, Normal capillary refill, Normal inspection, Normal range of motion, Non-tender, No pedal edema Musculoskeletal : Apperance: Normal Neurologic: Alert, 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 Was a procedure done?: No Differential Dx Considerations may include: URI, PNA, viral syndrome, GA, PE, among others X-Ray, Labs, Meds, VS Vital Signs Date Time Temp Pulse Resp B/P (MAP) Pulse Ox O2 Delivery O2 Flow Rate FiO2 06/27/24 00:40 97.5 94 20 115/60 (78) 85 97.5 Lab Test 06/27/24 01:30 06/27/24 00:45 Range/Units White Blood Count 6.2 4.4-10.8 10^3/uL Red Blood Count 3.16 L 4.0-5.20 10^6/uL Hemoglobin 10.6 #L 12.2-16.2 g/dL Hematocrit 33.1 #L 36.0-46.0 % Mean Corpuscular Volume 104.5 H 80.0-100.0 fL Mean Corpuscular Hemoglobin 33.7 H 28.0-32.0 pg Mean Corpuscular Hemoglobin Concent 32.2 32.0-36.0 g/dL Red Cell Distribution Width 17.4 H 11.8-14.3 % Platelet Count 283 140-450 10^3/uL Mean Platelet Volume 7.6 6.9-10.8 fL Neutrophils (%) (Auto) 57.2 37.0-80.0 % Lymphocytes (%) (Auto) 28.0 10.0-50.0 % Monocytes (%) (Auto) 9.8 0.0-12.0 % Eosinophils (%) (Auto) 3.9 0.0-7.0 % Basophils (%) (Auto) 1.1 0.0-2.0 % Neutrophils # (Auto) 3.5 1.6-8.6 10 ^3/uL Lymphocytes # (Auto) 1.7 0.4-5.4 10 ^3/uL Monocytes # (Auto) 0.6 0-1.3 10 ^3/uL Eosinophils # (Auto) 0.2 0-0.8 10 ^3/uL Basophils # (Auto) 0.1 0-0.2 10 ^3/uL Nucleated Red Blood Cells 0.1 % Sodium Level 143 # 136-145 mmol/L Potassium Level 5.3 H 3.5-5.1 mmol/L Chloride Level 114 H 98-107 mmol/L Carbon Dioxide Level 21 20-31 mmol/L Anion Gap 8 5-15 Blood Urea Nitrogen 45 H 9-23 mg/dL Creatinine 2.67 #H 0.550-1.02 mg/dL Glomerular Filtration Rate Calc 19 >90 mL/min BUN/Creatinine Ratio 16.9 10.0-20.0 Serum Glucose 145 H 74-106 mg/dL Lactic Acid Level 1.7 0.4-2.0 mmol/L Calcium Level 9.6 8.7-10.4 mg/dL Total Bilirubin 0.2 0.2-1.0 mg/dL Aspartate Amino Transferase (AST) 21 13-40 U/L Alanine Aminotransferase (ALT) 15 7-40 U/L Alkaline Phosphatase 141 H 46-116 U/L Total Protein 7.5 5.7-8.2 g/dL Albumin 3.7 3.2-4.8 g/dL POC Glucose 140 H 70-106 mg/dl Current Medications Medications (Trade) Dose Ordered Sig/Martita Route Start Time Stop Time Status Last Admin Albuterol (Ventolin Medneb) 2.5 mg ONCE ONCE NEB 06/27/24 01:15 06/27/24 01:16 DC 06/27/24 01:32 Ipratropium [place] (Atrovent Medneb) 0.5 mg ONCE ONCE NEB 06/27/24 01:15 06/27/24 01:16 DC 06/27/24 01:32 Time of 1ST Reevaluation: 01:40 Reevaluation 1ST: Unchanged Patient Education/Counseling: Diagnosis, Treatment Family Education/Counseling: Diagnosis, Treatment Assigned to Dr. Gomez Additional Information Previous visits: June 17, 2024 encounter for acute encephalopathy The following tests were ordered, and results were reviewed by me: CXR, UA, CBC, CMP, lactic acid w/reflux Additional Information was gathered from interviewing the following independent historians: daughter I reviewed and agreed with the following test results read by other providers: CXR I discussed treatment and results with medical personnel and: Patient Departure 1 Departure Time of Disposition: 03:27 (Patient with residual pneumonia and worsening hypox ia. We will admit patient for further workup) Impression: Primary Impression: Hypoxia Additional Impressions: Metabolic encephalopathy Pneumonia Qualified Codes: J18.9 - Pneumonia, unspecified organism Disposition: 09 ADMITTED INPATIENT Admit to: Med Surg Condition: Serious Critical Care Note Critical Care Time?: No Stability Stability form required: No Heart Score Heart Score: Heart Score Response (Comments) Value History Moderate Suspicious 1 EKG Normal 0 Age >65 2 Risk Factors >3 or Hx ASHD 2 Troponin Normal limit 0 Total 5 I personally scribed for NEERU SILVA ([email or web address]) on 06/27/24 at 01:30. Electronically submitted by Raj Redmond ([email or web address]). NEERU SILVA Jun 27, 2024 01:30 VIN DOMINGO MD Jun 27, 2024 03:28
[2024-06-27] MEDS: IPRATROPIUM BROM 0.5 MG/2.5ML INH SOL NEB ONE (01:32)
[2024-06-27] MEDS: ALBUTEROL SULF 2.5 MG/0.5ML(0.5%) NEB SOLN NEB ONE (01:32)
[2024-06-27 02:07] LABS: Basophils # (auto) 0.1 10 ^3/uL (0-0.2); Basophils % (auto) 1.1 % (0.0-2.0); Eosinophils # (auto) 0.2 10 ^3/uL (0-0.8); Hemoglobin 10.6 g/dL (12.2-16.2); Lymphocytes # (auto) 1.7 10 ^3/uL (0.4-5.4); Monocytes # (auto) 0.6 10 ^3/uL (0-1.3); Neutrophils # (auto) 3.5 10 ^3/uL (1.6-8.6)
[2024-06-27 02:09] LABS: Alanine Aminotransferase 15 U/L (7-40); Albumin 3.7 g/dL (3.2-4.8); Anion Gap 8 (5-15); Aspartate Aminotransferase 21 U/L (13-40); BUN/Creatinine Ratio 16.9 (10.0-20.0); Calcium 9.6 mg/dL (8.7-10.4); Carbon Dioxide 21 mmol/L (20-31); Eosinophils % (auto) 3.9 % (0.0-7.0); Hematocrit 33.1 % (36.0-46.0); Mean Corpuscular Hemoglobin 33.7 pg (28.0-32.0); Mean Corpuscular Hgb Conc. 32.2 g/dL (32.0-36.0); Mean Corpuscular Volume 104.5 fL (80.0-100.0); Monocytes % (auto) 9.8 % (0.0-12.0); Neutrophils % (auto) 57.2 % (37.0-80.0); Nucleated Red Blood Cells % 0.1 %; Platelet Count (auto) 283 10^3/uL (140-450); Red Blood Cells 3.16 10^6/uL (4.0-5.20); Red Cell Distribution Width 17.4 % (11.8-14.3); Sodium 143 mmol/L (136-145); Total Protein 7.5 g/dL (5.7-8.2); White Blood Cell 6.2 10^3/uL (4.4-10.8)
[2024-06-27 02:10] LABS: Alkaline Phosphatase 141 U/L (46-116); Bilirubin, Total 0.2 mg/dL (0.2-1.0); Blood Urea Nitrogen 45 mg/dL (9-23); Chloride 114 mmol/L (98-107); Glucose 145 mg/dL (74-106); Potassium 5.3 mmol/L (3.5-5.1)
--- NOTE | 2024-06-27 03:21 | DVH ---
CHEST RADIOGRAPH Indication: sob Technique: Single frontal view of the chest was obtained Comparison: XY CHEST PORTABLE on DOS: 06/16/24 IMPRESSION: The heart appears prominent in size. No focal airspace opacity, sizeable effusion, or pneumothorax. Interstitial prominence and mild pulmonary vascular congestion.
[2024-06-27] MEDS: VANCOMYCIN 1GM/200ML PM 200 ML IV ONE (03:30)
[2024-06-27] MEDS: CEFEPIME 2GM/50ML NS 50 ML IV ONE (03:30)
[2024-06-27] MEDS: AZITHROMYCIN 250 MG TAB PO ONE ×2 (03:30→05:30)
[2024-06-27] MEDS ORDERED: ONDANSETRON HCL 4 MG/2 ML VIAL IV PRN (04:30)
[2024-06-27] MEDS: SODIUM CHLORIDE 0.9% 1,000 ML IV ONE (04:30)
[2024-06-27] MEDS ORDERED: NITROGLYCERIN 0.4 MG SL TAB SL PRN (04:30)
[2024-06-27] MEDS: SODIUM ZIRCONIUM CYCL 10 GM PAK PO ONE ×2 (04:30→17:28)
[2024-06-27] MEDS ORDERED: ACETAMINOPHEN 325 MG TAB PO PRN (04:30)
[2024-06-27] MEDS ORDERED: HYDROcodone-ACET 5/325MG TAB PO PRN (04:30)
[2024-06-27] MEDS ORDERED: MORPHINE SULFATE INJ 2 MG/ml SYRG IV PRN (04:30)
--- NOTE | 2024-06-27 04:39 | DVHHP2 ---
Admitting Diagnosis: Shortness of breath History of Present Illness 69 y/o female patient presents with c/o shortness of breath and generalized weakness. In the emergency room patient was found to be sating in the 80s on room air. While in the emergency department the patient was evaluated by the provider, As per provider: Labs, vital signs, and imagining monitored. Patient will be admitted for further evaluation and treatment. I discussed admission with the patient/family and is in agreement to treatment plan. Patient Family History: Patient reports no known family medical history. Allergies: Coded Allergies: Felbamate (Verified Allergy, Unknown, 06/16/24) Methylphenidate (Verified Allergy, Unknown, 06/27/24) Phenobarbital (Verified Allergy, Unknown, 06/27/24) Home Meds Active Scripts Aspirin (Aspirin) 81 Mg Chw, 81 MG PO DAILY for 30 Days, #60 TAB.CHEW 1 Refill Prov:LEÓN HWANG RESDIENT 06/20/24 Gerlcnwfgpsnaao-Zzgmdsvf-Rywbv (Caladryl) 240 Ml Tp, 240 ML TOP BID for 30 Days, #1 EA 1 Refill Prov:LEÓN HWANG RESDIENT 06/20/24 Doxycycline Hyclate (DOXYCYCLINE HYCLATE) 100 Mg Tab, 100 MG PO BID for 7 Days, #14 TAB Prov:LEÓN HWANG RESDIENT 06/20/24 Reported Medications Aspirin (Chewable Aspirin) 81 Mg Chw, 1 TAB PO DAILY 06/18/24 Albuterol Sulfate (Albuterol Sulfate Hfa) 108 Mcg/Act Aer, 2 PUFF PO Q4HPRN PRN for SHORTNESS OF BREATH 06/18/24 Cephalexin Monohydrate (Cephalexin) 500 Mg Cap, 1 CAP PO QID 06/18/24 Atorvastatin Calcium (ATORVASTATIN CALCIUM) 40 Mg Tab 06/17/24 Gabapentin (Gabapentin) 300 Mg Cap, 1 CAP PO BID 06/17/24 Amlodipine Besylate (Amlodipine Besylate) 10 Mg Tab, 1 TAB PO DAILY 06/17/24 Montelukast Sodium (MONTELUKAST SODIUM) 10 Mg Tab, 1 TAB PO DAILY 06/17/24 Carbamazepine (Carbamazepine) 200 Mg Tab, 1 TAB PO QID 06/17/24 Clopidogrel Bisulfate (CLOPIDOGREL) 75 Mg Tab, 1 TAB PO DAILY 06/17/24 Furosemide (Furosemide) 40 Mg Tab, 1 TAB PO BID 06/17/24 Carvedilol (Carvedilol) 3.125 Mg Tab, 1 TAB PO 06/17/24 Allopurinol (Allopurinol) 100 Mg Tab, 1 TAB PO DAILY 06/17/24 Current Medications Current Medications Medications (Trade) Dose Ordered Sig/Martita Route PRN Reason Start Time Stop Time Status Last Admin Acetaminophen/ Hydrocodone Bitart (Albright 5/325MG Tab) 1 tab Q4HP PRN PO MODERATE PAIN (4-6 PAIN SCALE) 06/27/24 04:30 Ondansetron HCl (Zofran) 4 mg Q4HP PRN IV NAUSEA / VOMITING 06/27/24 04:30 Zinc Sulfate 220 mg DAILY PO 06/27/24 10:00 06/27/24 10:59 Ascorbic Acid (Vitamin C Tablet) 500 mg BID PO 06/27/24 10:00 06/27/24 11:00 Multivitamins (Mvi Tab) 1 tab DAILY PO 06/27/24 10:00 06/27/24 11:00 Acetaminophen (Tylenol Tablet) 650 mg Q6HP PRN PO PAIN SCALE 1-3 OR TEMP>100.4 06/27/24 04:30 Nitroglycerin (Ntrostat Sublingual) 0.4 mg Q5MINP PRN SL FOR CHEST PAIN 06/27/24 04:30 Morphine Sulfate 2 mg Q30M PRN IV FOR CHEST PAIN 06/27/24 04:30 Clopidogrel Bisulfate (Plavix) 75 mg DAILY PO 06/27/24 10:00 06/27/24 11:00 Montelukast Sodium (Singulair Tablet) 10 mg DAILY PO 06/27/24 10:00 06/27/24 10:59 Aspirin 81 mg DAILY PO 06/27/24 10:00 06/27/24 11:01 Ceftriaxone Sodium 50 ml @ 100 mls/hr DAILY IV 06/27/24 10:00 06/27/24 12:56 DC 06/27/24 10:59 Doxycycline Monohydrate (Vibramycin Tablet) 100 mg BID PO 06/27/24 10:00 06/27/24 11:00 Pantoprazole Sodium (Protonix Tablet) 40 mg DAILY PO 06/27/24 10:00 06/27/24 11:00 Albuterol (Ventolin Medneb) 2.5 mg Q4HPRN PRN NEB SHORTNESS OF BREATH 06/27/24 04:30 Ipratropium [place] (Atrovent Medneb) 0.5 mg Q4HPRN PRN NEB SHORTNESS OF BREATH 06/27/24 04:30 Methylprednisolone Sodium Succinate (Solu Medrol) 60 mg Q8HR IV 06/27/24 14:00 06/27/24 15:15 Review of Systems Constitutional: denies chills, denies fever, denies malaise Eyes: denies eye pain, denies vision change ENT: denies ear pain, denies headache, denies nasal congestion, denies painful swallowing, denies voice change Cardiovascular: denies chest pain, denies edema, denies orthopnea, denies palpitations, denies paroxysmal nocturnal dyspnea Respiratory: denies cough, denies shortness of breath Gastrointestinal: denies constipation, denies diarrhea, denies nausea, denies vomiting Genitourinary: denies dysuria, denies frequent urination, denies urethral discharge Musculoskeletal: denies back pain, denies joint pain, denies muscle pain Skin: denies bruising, denies itching, denies rash Neurological: denies focal weakness, denies headache, denies sensory changes Psychiatric: denies anxiety, denies depression Endocrine: denies polydipsia, denies polyuria Hematologic/Lymphatic: denies easy bleeding, denies easy bruising, denies enlarged lymph nodes Allergic/Immunologic: denies allergy, denies hives Vital Signs Vital Signs Date Time Temp Pulse Resp B/P (MAP) Pulse Ox O2 Delivery O2 Flow Rate FiO2 06/27/24 17:00 68 13 124/65 (84) 100 06/27/24 08:58 Nasal Cannula* 2 28 06/27/24 08:00 97.7 97.7 Physical Exam General Appearance: alert, no distress HEENT: EOMI, PERRLA, normal external inspect of ears, no icterus, no nasal drainage Neck: no carotid bruit, no jugular venous distention (JVD), no lymphadenopathy Chest: normal thorax Respiratory: clear to auscultation, normal air movement Cardiovascular: regular rate and rhythm, no diastolic murmur, no jugular venous distention (JVD), no rub, no systolic murmur Abdominal: soft, no hepatomegaly, no mass, no splenomegaly, no tenderness Genitourinary: grossly normal external Musculoskeletal: no joint tenderness, no swelling Extremities: normal pulses, no calf tenderness, no clubbing, no cyanosis, no edema Skin: no bruising, no jaundice, no rash Neurological: alert, No focal deficit Results Labs Test 06/27/24 14:45 06/27/24 09:15 06/27/24 01:36 06/27/24 01:30 Range/Units Urine Color Yellow Yellow Urine Clarity Clear Clear Urine pH 5.5 5.0-9.0 Urine Specific [place] 1.017 1.001-1.035 Urine Protein 1+ H Negative Urine Ketones Negative Negative Urine Blood Negative Negative /uL Urine Nitrite Negative Negative Urine Bilirubin Negative Negative Urine Urobilinogen Normal Negative mg/dL Urine Leukocyte Esterase 2+ Negative /uL Urine RBC 4 0 - 4 /hpf Urine Microscopic WBC 41 H 0-5 /HPF Urine Squamous Epithelial Cells Few <5 /hpf Urine Bacteria Few H None Seen /hpf Urine Hyaline Casts Few 0 - 2 /lpf Urine Yeast (Budding) Occasional None Seen /hpf Urine Creatinine 89.03 30.0-125.0 mg/dL Urine Protein/Creatinine Ratio 0.95 Urine Glucose Normal Normal mg/dL Urine Total Protein 85.0 H 1-14 mg/dL Sodium Level 144 136-145 mmol/L Potassium Level 5.0 3.5-5.1 mmol/L Chloride Level 115 H 98-107 mmol/L Carbon Dioxide Level 18 L 20-31 mmol/L Anion Gap 11 5-15 Blood Urea Nitrogen 48 H 9-23 mg/dL Creatinine 2.46 H 0.550-1.02 mg/dL Glomerular Filtration Rate Calc 20 >90 mL/min BUN/Creatinine Ratio 19.5 10.0-20.0 Serum Glucose 97 74-106 mg/dL Calcium Level 9.1 8.7-10.4 mg/dL Phosphorus Level 3.9 2.4-5.1 mg/dL Magnesium Level 2.1 1.6-2.6 mg/dL Thyroid Stimulating Hormone (TSH) 0.73 0.55-4.78 uIU/mL Vitamin B12 Level 748 211-911 pg/mL Vitamin D 25-Hydroxy 38.0 30.0-100 ng/mL White Blood Count 6.2 4.4-10.8 10^3/uL Red Blood Count 3.16 L 4.0-5.20 10^6/uL Hemoglobin 10.6 #L 12.2-16.2 g/dL Hematocrit 33.1 #L 36.0-46.0 % Mean Corpuscular Volume 104.5 H 80.0-100.0 fL Mean Corpuscular Hemoglobin 33.7 H 28.0-32.0 pg Mean Corpuscular Hemoglobin Concent 32.2 32.0-36.0 g/dL Red Cell Distribution Width 17.4 H 11.8-14.3 % Platelet Count 283 140-450 10^3/uL Mean Platelet Volume 7.6 6.9-10.8 fL Neutrophils (%) (Auto) 57.2 37.0-80.0 % Lymphocytes (%) (Auto) 28.0 10.0-50.0 % Monocytes (%) (Auto) 9.8 0.0-12.0 % Eosinophils (%) (Auto) 3.9 0.0-7.0 % Basophils (%) (Auto) 1.1 0.0-2.0 % Neutrophils # (Auto) 3.5 1.6-8.6 10 ^3/uL Lymphocytes # (Auto) 1.7 0.4-5.4 10 ^3/uL Monocytes # (Auto) 0.6 0-1.3 10 ^3/uL Eosinophils # (Auto) 0.2 0-0.8 10 ^3/uL Basophils # (Auto) 0.1 0-0.2 10 ^3/uL Nucleated Red Blood Cells 0.1 % Lactic Acid Level 1.7 0.4-2.0 mmol/L Total Bilirubin 0.2 0.2-1.0 mg/dL Aspartate Amino Transferase (AST) 21 13-40 U/L Alanine Aminotransferase (ALT) 15 7-40 U/L Alkaline Phosphatase 141 H 46-116 U/L B-Type Natriuretic Peptide 146.35 0-100 pg/mL Total Protein 7.5 5.7-8.2 g/dL Albumin 3.7 3.2-4.8 g/dL Parathyroid Hormone (Intact) 76.0 18.4-80.1 pg/mL Test 06/27/24 00:45 Range/Units POC Glucose 140 H 70-106 mg/dl Plan 1. Acute hypoxic respiratory failure Monitor, pulmonary consult, supplemental O2, Med-Neb tx, IV abx 2. COPD exacerbation Monitor, pulmonary consult, IV steroids 3. Morbid obesity Monitor, cardiac diet 4. MARILIN with VMN Monitor, nephrology consult, hold diuretics, daily labs 5. Hyperkalemia Monitor, hyperkalemic protocol, daily labs 6. Macrocytic anemia Monitor, daily labs Plan discussed with: Patient, Other LEATHA [employer] Jun 27, 2024 04:39
[2024-06-27 09:42] LABS: Calcium 9.1 mg/dL (8.7-10.4)
[2024-06-27 09:43] LABS: Sodium 144 mmol/L (136-145)
[2024-06-27 09:45] LABS: Carbon Dioxide 18 mmol/L (20-31)
[2024-06-27 09:47] LABS: Anion Gap 11 (5-15); BUN/Creatinine Ratio 19.5 (10.0-20.0); Blood Urea Nitrogen 48 mg/dL (9-23); Chloride 115 mmol/L (98-107); Glucose 97 mg/dL (74-106)
[2024-06-27] MEDS: ZINC SULFATE 220mg CAP or TAB PO SCH (10:59)
[2024-06-27] MEDS: MONTELUKAST SODIUM 10 MG TAB PO SCH (10:59)
[2024-06-27] MEDS: cefTRIAXone 1GM/50ML D5W 50 ML IV SCH (10:59)
[2024-06-27] MEDS: MULTIPLE VITAMIN TAB PO SCH (11:00)
[2024-06-27] MEDS: PANTOPRAZOLE 40 MG TAB PO SCH (11:00)
[2024-06-27] MEDS: ASCORBIC ACID 500 MG TAB PO SCH (11:00)
[2024-06-27] MEDS: CLOPIDOGREL BISULFATE 75 MG TAB PO SCH (11:00)
[2024-06-27] MEDS: DOXYCYCLINE 100 MG TAB/CAP PO SCH (11:00)
[2024-06-27] MEDS: ASPirin 81 mg TAB PO SCH (11:01)
[2024-06-27 12:33] LABS: Magnesium 2.1 mg/dL (1.6-2.6)
[2024-06-27 12:34] LABS: Phosphorus 3.9 mg/dL (2.4-5.1)
--- NOTE | 2024-06-27 14:11 | DVHINCON2 ---
Date of service: Jun 27, [address] davis Reason for Consultation pneumonia History of Present Illness HPI pt is a 69 yo female, h/o copd, DM, neuropathy and seizures. Presented with worsening shortness of breath and cough, denies fever. Pt in ER desaturating requiring suppl 02. Home Meds Active Scripts Aspirin (Aspirin) 81 Mg Chw, 81 MG PO DAILY for 30 Days, #60 TAB.CHEW 1 Refill Prov:HEWADMAL,KIMMYWAD RESDIENT 06/20/24 Atnzolgscczauxv-Pcjimlgz-Jzmbz (Caladryl) 240 Ml Tp, 240 ML TOP BID for 30 Days, #1 EA 1 Refill Prov:HEWADMALKIMMYWAD RESDIENT 06/20/24 Doxycycline Hyclate (DOXYCYCLINE HYCLATE) 100 Mg Tab, 100 MG PO BID for 7 Days, #14 TAB Prov:SHAANALKIMMYWAD RESDIENT 06/20/24 Reported Medications Aspirin (Chewable Aspirin) 81 Mg Chw, 1 TAB PO DAILY 06/18/24 Albuterol Sulfate (Albuterol Sulfate Hfa) 108 Mcg/Act Aer, 2 PUFF PO Q4HPRN PRN for SHORTNESS OF BREATH 06/18/24 Cephalexin Monohydrate (Cephalexin) 500 Mg Cap, 1 CAP PO QID 06/18/24 Atorvastatin Calcium (ATORVASTATIN CALCIUM) 40 Mg Tab 06/17/24 Gabapentin (Gabapentin) 300 Mg Cap, 1 CAP PO BID 06/17/24 Amlodipine Besylate (Amlodipine Besylate) 10 Mg Tab, 1 TAB PO DAILY 06/17/24 Montelukast Sodium (MONTELUKAST SODIUM) 10 Mg Tab, 1 TAB PO DAILY 06/17/24 Carbamazepine (Carbamazepine) 200 Mg Tab, 1 TAB PO QID 06/17/24 Clopidogrel Bisulfate (CLOPIDOGREL) 75 Mg Tab, 1 TAB PO DAILY 06/17/24 Furosemide (Furosemide) 40 Mg Tab, 1 TAB PO BID 06/17/24 Carvedilol (Carvedilol) 3.125 Mg Tab, 1 TAB PO 06/17/24 Allopurinol (Allopurinol) 100 Mg Tab, 1 TAB PO DAILY 06/17/24 Past Medical History Cardiac: CAD, HTN Pulmonary: COPD Central Nervous System: Periperal neuropathy, Seizure GI: No pertinent Hx Hemotology/Oncology: No pertinent Hx Hepatobiliary: No pertinent Hx Psychiatric: No pertinent Hx Musculoskeletal: Chronic low back pain Infectious Disease: No peritnent Hx ENT: No pertinent Hx Renal/: No pertinent Hx Endocrine: IDDM Patient Family History: Patient reports no known family medical history. Review of Systems Constitutional: Malaise, Weakness Ears, Nose, & Throat: No symptom reported Eyes: No symptom reported Pulmonary/Respiratory: Dyspnea, Cough Cardiovascular: No symptom reported Gastrointestinal: No symptom reported Genitourinary: No symptom reported Musculoskeletal: No symptom reported Skin: No symptom reported Psychiatric: No symptom reported Endocrine: No symptom reported Hemotologic/Lymphatic: No symptom reported H&P Exam Vital Signs Vital Signs Date Time Temp Pulse Resp B/P (MAP) Pulse Ox O2 Delivery O2 Flow Rate FiO2 06/27/24 12:00 76 15 134/65 (88) 100 06/27/24 08:58 Nasal Cannula* 2 28 06/27/24 08:00 97.7 97.7 General Appeara: Well developed, Well nourished Head Exam: Normal inspection Neck Exam: Normal inspection Eye Exam: bilateral eye Normal inspection, bilateral eye PERRL Ear Exam: bilateral ear Auricle normal, bilateral ear Canal normal Pulmonary/Respiratory: Normal inspection, Lungs clear Cardiovascular/Chest: Normal inspection Peripheral Pulses: 4+ carotid (R), 4+ carotid (L) Abdominal Exam: Normal bowel sounds Rectal Exam: Deferred Labs/Xrays Labs Test 06/27/24 09:15 06/27/24 01:36 06/27/24 01:30 06/27/24 00:45 Range/Units Sodium Level 144 136-145 mmol/L Potassium Level 5.0 3.5-5.1 mmol/L Chloride Level 115 H 98-107 mmol/L Carbon Dioxide Level 18 L 20-31 mmol/L Anion Gap 11 5-15 Blood Urea Nitrogen 48 H 9-23 mg/dL Creatinine 2.46 H 0.550-1.02 mg/dL Glomerular Filtration Rate Calc 20 >90 mL/min BUN/Creatinine Ratio 19.5 10.0-20.0 Serum Glucose 97 74-106 mg/dL Calcium Level 9.1 8.7-10.4 mg/dL Phosphorus Level 3.9 2.4-5.1 mg/dL Magnesium Level 2.1 1.6-2.6 mg/dL Thyroid Stimulating Hormone (TSH) 0.73 0.55-4.78 uIU/mL Vitamin B12 Level 748 211-911 pg/mL Vitamin D 25-Hydroxy 38.0 30.0-100 ng/mL White Blood Count 6.2 4.4-10.8 10^3/uL Red Blood Count 3.16 L 4.0-5.20 10^6/uL Hemoglobin 10.6 #L 12.2-16.2 g/dL Hematocrit 33.1 #L 36.0-46.0 % Mean Corpuscular Volume 104.5 H 80.0-100.0 fL Mean Corpuscular Hemoglobin 33.7 H 28.0-32.0 pg Mean Corpuscular Hemoglobin Concent 32.2 32.0-36.0 g/dL Red Cell Distribution Width 17.4 H 11.8-14.3 % Platelet Count 283 140-450 10^3/uL Mean Platelet Volume 7.6 6.9-10.8 fL Neutrophils (%) (Auto) 57.2 37.0-80.0 % Lymphocytes (%) (Auto) 28.0 10.0-50.0 % Monocytes (%) (Auto) 9.8 0.0-12.0 % Eosinophils (%) (Auto) 3.9 0.0-7.0 % Basophils (%) (Auto) 1.1 0.0-2.0 % Neutrophils # (Auto) 3.5 1.6-8.6 10 ^3/uL Lymphocytes # (Auto) 1.7 0.4-5.4 10 ^3/uL Monocytes # (Auto) 0.6 0-1.3 10 ^3/uL Eosinophils # (Auto) 0.2 0-0.8 10 ^3/uL Basophils # (Auto) 0.1 0-0.2 10 ^3/uL Nucleated Red Blood Cells 0.1 % Lactic Acid Level 1.7 0.4-2.0 mmol/L Total Bilirubin 0.2 0.2-1.0 mg/dL Aspartate Amino Transferase (AST) 21 13-40 U/L Alanine Aminotransferase (ALT) 15 7-40 U/L Alkaline Phosphatase 141 H 46-116 U/L B-Type Natriuretic Peptide 146.35 0-100 pg/mL Total Protein 7.5 5.7-8.2 g/dL Albumin 3.7 3.2-4.8 g/dL Parathyroid Hormone (Intact) 76.0 18.4-80.1 pg/mL POC Glucose 140 H 70-106 mg/dl Assessment/Plan Plan acute exacerbation of copd acute hypoxemia atelectases CHF management suppl 02 as needed steroids abx bronchodilators diurese gi and dvt proph Plan discussed with: Patient CLYDE MONTANEZ MD Jun 27, 2024 14:11
[2024-06-27] MEDS: methylPREDNISolone SOD SUCC 40 MG/ML VL IV SCH (15:15)
[2024-06-27 15:29] LABS: Urine Bacteria FEW /hpf (None Seen); Urine Blood Negative /uL (Negative); Urine Budding Yeast OCCASIONAL /hpf (None Seen); Urine Clarity Clear (Clear); Urine Color Yellow (Yellow); Urine Hyaline Cast FEW /lpf (0 - 2); Urine Protein, UAD 1+ (Negative); Urine Specific Gravity 1.017 (1.001-1.035); Urine Squamous Epithelial Cell FEW /hpf (<5); Urine Urobilinogen Normal (Negative); Urine WBC 41 /HPF (0-5); Urine pH 5.5 (5.0-9.0)
[2024-06-27 15:38] LABS: Creatinine, Urine 89.03 mg/dL (30.0-125.0); Urine Protein/Creatinine Ratio 0.95
--- NOTE | 2024-06-27 16:15 | DVHCONRES ---
Date Seen: Jun 27, 2024 Resident Creating Document: VIOLETTA VAZQUEZ RESIDENT Referring Physician Dr. Glover Reason for Consultation Acute kidney injury on chronic kidney disease History of Present Illness 69-year-old female patient with past medical history of esophageal hernia, chronic kidney disease currently stage IV, COPD, type 2 diabetes, hyperlipidemia, hypertension, seizure disorder, peripheral artery disease, obesity type 2, anemia, recurrent lower extremity cellulitis who presented to the emergency department with a chief complaint of productive cough with whitish sputum, patient reported having had diarrhea previously but it has since resolv ed. She currently denies chest pain shortness of breaths fever or abdominal pain. Chest x-ray showed interstitial prominence and mild pulmonary vascular congestion and basic metabolic panel revealed elevated creatinine and BUN, Past Surgical History Brain aneurysm repair status post surgical clip Family History: Patient reports no known family medical history. Allergies: Coded Allergies: Felbamate (Verified Allergy, Unknown, 06/16/24) Methylphenidate (Verified Allergy, Unknown, 06/27/24) Phenobarbital (Verified Allergy, Unknown, 06/27/24) Home Meds Active Scripts Aspirin (Aspirin) 81 Mg Chw, 81 MG PO DAILY for 30 Days, #60 TAB.CHEW 1 Refill Prov:LEÓN HWANG RESDIENT 06/20/24 Rccljbfvecmlxvd-Aengpllz-Hlzbf (Caladryl) 240 Ml Tp, 240 ML TOP BID for 30 Days, #1 EA 1 Refill Prov:LEÓN HWANG RESDIENT 06/20/24 Doxycycline Hyclate (DOXYCYCLINE HYCLATE) 100 Mg Tab, 100 MG PO BID for 7 Days, #14 TAB Prov:LEÓN HWANG RESDIENT 06/20/24 Reported Medications Aspirin (Chewable Aspirin) 81 Mg Chw, 1 TAB PO DAILY 06/18/24 Albuterol Sulfate (Albuterol Sulfate Hfa) 108 Mcg/Act Aer, 2 PUFF PO Q4HPRN PRN for SHORTNESS OF BREATH 06/18/24 Cephalexin Monohydrate (Cephalexin) 500 Mg Cap, 1 CAP PO QID 06/18/24 Atorvastatin Calcium (ATORVASTATIN CALCIUM) 40 Mg Tab 06/17/24 Gabapentin (Gabapentin) 300 Mg Cap, 1 CAP PO BID 06/17/24 Amlodipine Besylate (Amlodipine Besylate) 10 Mg Tab, 1 TAB PO DAILY 06/17/24 Montelukast Sodium (MONTELUKAST SODIUM) 10 Mg Tab, 1 TAB PO DAILY 06/17/24 Carbamazepine (Carbamazepine) 200 Mg Tab, 1 TAB PO QID 06/17/24 Clopidogrel Bisulfate (CLOPIDOGREL) 75 Mg Tab, 1 TAB PO DAILY 06/17/24 Furosemide (Furosemide) 40 Mg Tab, 1 TAB PO BID 06/17/24 Carvedilol (Carvedilol) 3.125 Mg Tab, 1 TAB PO 06/17/24 Allopurinol (Allopurinol) 100 Mg Tab, 1 TAB PO DAILY 06/17/24 Current Medications Current Medications Medications (Trade) Dose Ordered Sig/Martita Route PRN Reason Start Time Stop Time Status Last Admin Acetaminophen/ Hydrocodone Bitart ([place] 5/325MG Tab) 1 tab Q4HP PRN PO MODERATE PAIN (4-6 PAIN SCALE) 06/27/24 04:30 Ondansetron HCl (Zofran) 4 mg Q4HP PRN IV NAUSEA / VOMITING 06/27/24 04:30 Zinc Sulfate 220 mg DAILY PO 06/27/24 10:00 06/27/24 10:59 Ascorbic Acid (Vitamin C Tablet) 500 mg BID PO 06/27/24 10:00 06/27/24 11:00 Multivitamins (Mvi Tab) 1 tab DAILY PO 06/27/24 10:00 06/27/24 11:00 Acetaminophen (Tylenol Tablet) 650 mg Q6HP PRN PO PAIN SCALE 1-3 OR TEMP>100.4 06/27/24 04:30 Nitroglycerin (Ntrostat Sublingual) 0.4 mg Q5MINP PRN SL FOR CHEST PAIN 06/27/24 04:30 Morphine Sulfate 2 mg Q30M PRN IV FOR CHEST PAIN 06/27/24 04:30 Clopidogrel Bisulfate (Plavix) 75 mg DAILY PO 06/27/24 10:00 06/27/24 11:00 Montelukast Sodium (Singulair Tablet) 10 mg DAILY PO 06/27/24 10:00 06/27/24 10:59 Aspirin 81 mg DAILY PO 06/27/24 10:00 06/27/24 11:01 Ceftriaxone Sodium 50 ml @ 100 mls/hr DAILY IV 06/27/24 10:00 06/27/24 12:56 DC 06/27/24 10:59 Doxycycline Monohydrate (Vibramycin Tablet) 100 mg BID PO 06/27/24 10:00 06/27/24 11:00 Pantoprazole Sodium (Protonix Tablet) 40 mg DAILY PO 06/27/24 10:00 06/27/24 11:00 Albuterol (Ventolin Medneb) 2.5 mg Q4HPRN PRN NEB SHORTNESS OF BREATH 06/27/24 04:30 Ipratropium [place] (Atrovent Medneb) 0.5 mg Q4HPRN PRN NEB SHORTNESS OF BREATH 06/27/24 04:30 Methylprednisolone Sodium Succinate (Solu Medrol) 60 mg Q8HR IV 06/27/24 14:00 06/27/24 15:15 Review of Systems Constitutional: No: Fever, Chills, Sweats, Weakness, Malaise, Other Eyes: No: Pain, Vision change, Conjunctivae inflammation, Eyelid inflammation, Other, Redness ENT: No: Ear pain, Ear discharge, Nose pain, Nose discharge, Nose congestion, Mouth pain, Mouth swelling, Throat pain, Throat swelling, Other Respiratory: Cough present, Shortness of breath, improving No Wheezing, He moptysis, Pleuritic Pain, Sputum, Wheezing, Other Cardiovascular: No: Chest Pain, Palpitations, Orthopnea, Paroxysmal Noc. Dysp nevin, Edema, Lt Headedness, Other Gastrointestinal: No: Nausea, Vomiting, Abdominal Pain, Diarrhea, Constipation, Melena, Hematochezia, Other Musculoskeletal: No: other, neck pain, shoulder pain, arm pain, back pain, hand pain, leg pain, foot pain Neurological:; history of seizures No: Weakness, Numbness, Incoordination, Change in speech, Confusion, Seizures Vital Signs Vital Signs Date Time Temp Pulse Resp B/P (MAP) Pulse Ox O2 Delivery O2 Flow Rate FiO2 06/27/24 12:00 76 15 134/65 (88) 100 06/27/24 08:58 Nasal Cannula* 2 28 06/27/24 08:00 97.7 97.7 Physical Exam Examination General Appearance: Alert, Oriented X3, Cooperative, No acute distress HEENT: EOMI Respiratory: Clear to auscultation, Normal air movement Cardiovascular: Regular rate, Normal S1, Normal S2 Abdominal: Normal bowel sounds Extremities: No cyanosis, No edema, Normal pulses, No tenderness/swelling Skin: No rashes, No breakdown Neuro: Wheelchair-bound, Normal speech, Strength at 5/5 X4 ext, Normal tone, Sensation intact, Cranial nerves 3-12 NL, Reflexes 2+ Psych/Mental Status: Mental status NL, Mood NL Labs/Diagnostic Data Labs Test 06/27/24 14:45 06/27/24 09:15 06/27/24 01:36 06/27/24 01:30 Range/Units Urine Color Yellow Yellow Urine Clarity Clear Clear Urine pH 5.5 5.0-9.0 Urine Specific [place] 1.017 1.001-1.035 Urine Protein 1+ H Negative Urine Ketones Negative Negative Urine Blood Negative Negative /uL Urine Nitrite Negative Negative Urine Bilirubin Negative Negative Urine Urobilinogen Normal Negative mg/dL Urine Leukocyte Esterase 2+ Negative /uL Urine RBC 4 0 - 4 /hpf Urine Microscopic WBC 41 H 0-5 /HPF Urine Squamous Epithelial Cells Few <5 /hpf Urine Bacteria Few H None Seen /hpf Urine Hyaline Casts Few 0 - 2 /lpf Urine Yeast (Budding) Occasional None Seen /hpf Urine Creatinine 89.03 30.0-125.0 mg/dL Urine Protein/Creatinine Ratio 0.95 Urine Glucose Normal Normal mg/dL Urine Total Protein 85.0 H 1-14 mg/dL Sodium Level 144 136-145 mmol/L Potassium Level 5.0 3.5-5.1 mmol/L Chloride Level 115 H 98-107 mmol/L Carbon Dioxide Level 18 L 20-31 mmol/L Anion Gap 11 5-15 Blood Urea Nitrogen 48 H 9-23 mg/dL Creatinine 2.46 H 0.550-1.02 mg/dL Glomerular Filtration Rate Calc 20 >90 mL/min BUN/Creatinine Ratio 19.5 10.0-20.0 Serum Glucose 97 74-106 mg/dL Calcium Level 9.1 8.7-10.4 mg/dL Phosphorus Level 3.9 2.4-5.1 mg/dL Magnesium Level 2.1 1.6-2.6 mg/dL Thyroid Stimulating Hormone (TSH) 0.73 0.55-4.78 uIU/mL Vitamin B12 Level 748 211-911 pg/mL Vitamin D 25-Hydroxy 38.0 30.0-100 ng/mL White Blood Count 6.2 4.4-10.8 10^3/uL Red Blood Count 3.16 L 4.0-5.20 10^6/uL Hemoglobin 10.6 #L 12.2-16.2 g/dL Hematocrit 33.1 #L 36.0-46.0 % Mean Corpuscular Volume 104.5 H 80.0-100.0 fL Mean Corpuscular Hemoglobin 33.7 H 28.0-32.0 pg Mean Corpuscular Hemoglobin Concent 32.2 32.0-36.0 g/dL Red Cell Distribution Width 17.4 H 11.8-14.3 % Platelet Count 283 140-450 10^3/uL Mean Platelet Volume 7.6 6.9-10.8 fL Neutrophils (%) (Auto) 57.2 37.0-80.0 % Lymphocytes (%) (Auto) 28.0 10.0-50.0 % Monocytes (%) (Auto) 9.8 0.0-12.0 % Eosinophils (%) (Auto) 3.9 0.0-7.0 % Basophils (%) (Auto) 1.1 0.0-2.0 % Neutrophils # (Auto) 3.5 1.6-8.6 10 ^3/uL Lymphocytes # (Auto) 1.7 0.4-5.4 10 ^3/uL Monocytes # (Auto) 0.6 0-1.3 10 ^3/uL Eosinophils # (Auto) 0.2 0-0.8 10 ^3/uL Basophils # (Auto) 0.1 0-0.2 10 ^3/uL Nucleated Red Blood Cells 0.1 % Lactic Acid Level 1.7 0.4-2.0 mmol/L Total Bilirubin 0.2 0.2-1.0 mg/dL Aspartate Amino Transferase (AST) 21 13-40 U/L Alanine Aminotransferase (ALT) 15 7-40 U/L Alkaline Phosphatase 141 H 46-116 U/L B-Type Natriuretic Peptide 146.35 0-100 pg/mL Total Protein 7.5 5.7-8.2 g/dL Albumin 3.7 3.2-4.8 g/dL Parathyroid Hormone (Intact) 76.0 18.4-80.1 pg/mL Test 06/27/24 00:45 Range/Units POC Glucose 140 H 70-106 mg/dl Assessment Acute kidney injury on chronic kidney disease stage 4 Mild hyperkalemia secondary to acute kidney injury on CKD COPD exacerbation Probable community-acquired pneumonia History of diabetes History of hypertension History of peripheral artery disease Type 2 obesity Plan: Continue IV fluids at 100 mL/hour but monitor closely for volume overload Strict I&Os monitoring with Jackson catheter Avoid nephrotoxic agents if possible Lokelco Monitor potassium levels Continue IV antibiotics per hospitalist Follow up on urine studies Discussed with Dr. Samuels Code status: Full code Addendum Patient seen and examined, plan discussed with resident. Agree with above, we will follow closely Plan discussed with: Patient VIOLETTA VAZQUEZ RESIDENT Jun 27, 2024 16:15 RADHA SAMUELS MD Jun 27, 2024 19:55
[2024-06-28] VITALS (10 sets, daily range): BP systolic 115–143; BP diastolic 47–62; PULSE 68–77; RESP 16–18; TEMP 97.6–98.3; O2SAT 97–99
[2024-06-28 07:32] LABS: Basophils # (auto) 0 10 ^3/uL (0-0.2); Basophils % (auto) 0.5 % (0.0-2.0); Eosinophils # (auto) 0 10 ^3/uL (0-0.8); Eosinophils % (auto) 0.3 % (0.0-7.0); Hemoglobin 9.6 g/dL (12.2-16.2); Monocytes # (auto) 0.4 10 ^3/uL (0-1.3); Monocytes % (auto) 6.9 % (0.0-12.0); Neutrophils # (auto) 3.2 10 ^3/uL (1.6-8.6); Platelet Count (auto) 250 10^3/uL (140-450); White Blood Cell 5.2 10^3/uL (4.4-10.8)
[2024-06-28 07:36] LABS: Hematocrit 29.7 % (36.0-46.0); Lymphocytes # (auto) 1.6 10 ^3/uL (0.4-5.4); Lymphocytes % (auto) 31.4 % (10.0-50.0); Mean Corpuscular Hemoglobin 33.6 pg (28.0-32.0); Mean Corpuscular Hgb Conc. 32.3 g/dL (32.0-36.0); Mean Corpuscular Volume 104.2 fL (80.0-100.0); Neutrophils % (auto) 60.9 % (37.0-80.0); Nucleated Red Blood Cells % 0.2 %; Red Blood Cells 2.85 10^6/uL (4.0-5.20); Red Cell Distribution Width 16.5 % (11.8-14.3)
[2024-06-28 07:48] LABS: Alanine Aminotransferase 13 U/L (7-40); Anion Gap 9 (5-15); Aspartate Aminotransferase 15 U/L (13-40); BUN/Creatinine Ratio 19.9 (10.0-20.0); Calcium 8.7 mg/dL (8.7-10.4); Glucose 92 mg/dL (74-106); Potassium 4.4 mmol/L (3.5-5.1); Sodium 142 mmol/L (136-145); Total Protein 6.7 g/dL (5.7-8.2)
[2024-06-28 07:49] LABS: Albumin 3.3 g/dL (3.2-4.8)
[2024-06-28 07:50] LABS: Alkaline Phosphatase 121 U/L (46-116); Bilirubin, Total 0.2 mg/dL (0.2-1.0); Blood Urea Nitrogen 39 mg/dL (9-23); Carbon Dioxide 18 mmol/L (20-31); Chloride 115 mmol/L (98-107)
--- NOTE | 2024-06-28 12:21 | DVHPN2 ---
Progress Note Date Seen: Jun 28, 2024 Resident Creating Document: ESAU ORDAZ RESIDENT Medical Necessity Reason Pt with a Central, PICC or Fol: No Subjective Review of Systems Patient seen and examined at bedside, patient denied any acute complaint. Not wearing oxygen at present. Patient reports oxygen keeps falling off. Objective vital signs Vital Sign Date Time Temp Pulse Resp B/P (MAP) Pulse Ox O2 Delivery O2 Flow Rate FiO2 06/28/24 09:00 98.1 71 16 141/62 (88) 99 98.1 06/27/24 08:58 Nasal Cannula* 2 28 Total Intake and Output 06/27/24 06/27/24 06/28/24 15:00 23:00 07:00 Intake Total 50 ml 500 ml Output Total 550 ml Balance 50 ml -50 ml medications Current Medications Medications Dose Ordered Sig/Martita Route Start Time Stop Time Status Last Admin Dose Admin Acetaminophen/ Hydrocodone Bitart 1 tab Q4HP PRN PO 06/27/24 04:30 Ondansetron HCl 4 mg Q4HP PRN IV 06/27/24 04:30 Zinc Sulfate 220 mg DAILY PO 06/27/24 10:00 06/28/24 10:29 220 MG Multivitamins 1 tab DAILY PO 06/27/24 10:00 06/28/24 10:28 1 TAB Acetaminophen 650 mg Q6HP PRN PO 06/27/24 04:30 Nitroglycerin 0.4 mg Q5MINP PRN SL 06/27/24 04:30 Morphine Sulfate 2 mg Q30M PRN IV 06/27/24 04:30 Clopidogrel Bisulfate 75 mg DAILY PO 06/27/24 10:00 06/28/24 10:28 75 MG Montelukast Sodium 10 mg DAILY PO 06/27/24 10:00 06/28/24 10:28 10 MG Aspirin 81 mg DAILY PO 06/27/24 10:00 06/28/24 10:28 81 MG Doxycycline Monohydrate 100 mg BID PO 06/27/24 10:00 06/28/24 10:28 100 MG Pantoprazole Sodium 40 mg DAILY PO 06/27/24 10:00 06/28/24 10:28 40 MG Albuterol 2.5 mg Q4HPRN PRN NEB 06/27/24 04:30 Ipratropium [place] 0.5 mg Q4HPRN PRN NEB 06/27/24 04:30 Methylprednisolone Sodium Succinate 60 mg Q8HR IV 06/27/24 14:00 06/28/24 05:37 60 MG Examination GENERAL:Normal, HEENT:Normal, NECK:Normal, LUNGS:Normal, CVS:Normal, ABDOMEN:Normal, MSK:Normal, SKIN:Normal, NEURO:Normal, :Normal laboratory and microbiology Laboratory Tests 06/28/24 06:20 Test 06/28/24 06:20 Range/Units Serum Glucose 92 74-106 mg/dL Problem List/Assessment/Plan Problem List/Assessment/Plan Assessment: Acute exacerbation of COPD Acute hypoxemia Atelectases CHF Plan: - Continue antibiotic treatment for 5-7 days - Monitor for clinical improvement - Assess readiness for discharge daily - Encourage mobilization as tolerated Case Discussed with Dr. Sykes Plan discussed with: Patient Date of Service: Jun 28, 2024 Billing Provider: CLYDE SYKES MD Common Visit Codes: NOT BILLABLE ESAU ORDAZ RESIDENT Jun 28, 2024 12:21 CLYDE SYKES MD July 01, 2024 14:41
--- NOTE | 2024-06-28 13:33 | DVHPN2 ---
Progress Note - Dictate Date Seen: Jun 28, 2024 Medical Necessity Reason Pt with a Central, PICC or Fol: No vital signs Vital Sign Date Time Temp Pulse Resp B/P (MAP) Pulse Ox O2 Delivery O2 Flow Rate FiO2 06/28/24 13:00 98.0 75 18 143/50 (81) 98 98.0 06/28/24 08:15 Nasal Cannula* 2 28 Total Intake and Output 06/27/24 06/27/24 06/28/24 15:00 23:00 07:00 Intake Total 50 ml 500 ml Output Total 550 ml Balance 50 ml -50 ml medications Current Medications Medications Dose Ordered Sig/Martita Route Start Time Stop Time Status Last Admin Dose Admin Acetaminophen/ Hydrocodone Bitart 1 tab Q4HP PRN PO 06/27/24 04:30 Ondansetron HCl 4 mg Q4HP PRN IV 06/27/24 04:30 Zinc Sulfate 220 mg DAILY PO 06/27/24 10:00 06/28/24 10:29 220 MG Multivitamins 1 tab DAILY PO 06/27/24 10:00 06/28/24 10:28 1 TAB Acetaminophen 650 mg Q6HP PRN PO 06/27/24 04:30 Nitroglycerin 0.4 mg Q5MINP PRN SL 06/27/24 04:30 Morphine Sulfate 2 mg Q30M PRN IV 06/27/24 04:30 Clopidogrel Bisulfate 75 mg DAILY PO 06/27/24 10:00 06/28/24 10:28 75 MG Montelukast Sodium 10 mg DAILY PO 06/27/24 10:00 06/28/24 10:28 10 MG Aspirin 81 mg DAILY PO 06/27/24 10:00 06/28/24 10:28 81 MG Doxycycline Monohydrate 100 mg BID PO 06/27/24 10:00 06/28/24 10:28 100 MG Pantoprazole Sodium 40 mg DAILY PO 06/27/24 10:00 06/28/24 10:28 40 MG Albuterol 2.5 mg Q4HPRN PRN NEB 06/27/24 04:30 Ipratropium [place] 0.5 mg Q4HPRN PRN NEB 06/27/24 04:30 Methylprednisolone Sodium Succinate 60 mg Q8HR IV 06/27/24 14:00 06/28/24 05:37 60 MG objective General Appearance: alert, no distress HEENT: EOMI, PERRLA, normal external inspect of ears, no icterus, no nasal drainage Neck: no carotid bruit, no jugular venous distention (JVD), no lymphadenopathy Chest: normal thorax Respiratory: clear to auscultation, normal air movement Cardiovascular: regular rate and rhythm, no diastolic murmur, no jugular venous distention (JVD), no rub, no systolic murmur Abdominal: soft, no hepatomegaly, no mass, no splenomegaly, no tenderness Genitourinary: grossly normal external Musculoskeletal: no joint tenderness, no swelling Extremities: normal pulses, no calf tenderness, no clubbing, no cyanosis, no edema Skin: no bruising, no jaundice, no rash Neurological: alert, No focal deficit laboratory and microbiology Laboratory Tests 06/28/24 06:20 Test 06/28/24 06:20 Range/Units Serum Glucose 92 74-106 mg/dL Problem List 1. Acute hypoxic respiratory failure Monitor, pulmonary consult, supplemental O2, Med-Neb tx, IV abx 2. COPD exacerbation Monitor, pulmonary consult, IV steroids 3. Morbid obesity Monitor, cardiac diet 4. MARILIN with VMN Monitor, nephrology consult, hold diuretics, daily labs 5. Hyperkalemia Monitor, hyperkalemic protocol, daily labs 6. Macrocytic anemia Monitor, daily labs Assessment/Plan Subjective: Patient is awake and alert. Objective: Patient was admitted for a COPD exacerbation. Patient denies any cough or sore throat at this time. Patient has severe aortic stenosis. States she does not want a TAVR. Patient states she is under medical management. Patient is predominantly bedbound and ambulates very little. Plan: Cardiology consult, monitor EKG, continue breathing treatments and supplemental O2 as needed for COPD exacerbation. Plan discussed with: Patient, Other LEATHA ADAMS NP Jun 28, 2024 13:33
--- NOTE | 2024-06-28 15:22 | DVHPN2 ---
Progress Note Date Seen: Jun 28, 2024 Resident Creating Document: VIOLETTA VAZQUEZ RESIDENT Has the PT tested + for MRSA If YES, has PT been informed?: No Medical Necessity Reason Pt with a Central, PICC or Fol: Yes The following are medically ne: Larry Catheter Reason for larry catheter: Strict I&O Subjective Review of Systems Patient seen and examined at bedside, patient denied any acute complaint, kidney functions are improving . We are going to continue monitoring for now patient does not require fluids but we are going to start sodium bicarbonate 650 mg p.o. b.i.d. to control the metabolic acidosis. Objective vital signs Vital Sign Date Time Temp Pulse Resp B/P (MAP) Pulse Ox O2 Delivery O2 Flow Rate FiO2 06/28/24 13:00 98.0 75 18 143/50 (81) 98 98.0 06/28/24 08:15 Nasal Cannula* 2 28 Total Intake and Output 06/27/24 06/27/24 06/28/24 15:00 23:00 07:00 Intake Total 50 ml 500 ml Output Total 550 ml Balance 50 ml -50 ml medications Current Medications Medications Dose Ordered Sig/Martita Route Start Time Stop Time Status Last Admin Dose Admin Acetaminophen/ Hydrocodone Bitart 1 tab Q4HP PRN PO 06/27/24 04:30 Ondansetron HCl 4 mg Q4HP PRN IV 06/27/24 04:30 Multivitamins 1 tab DAILY PO 06/27/24 10:00 06/28/24 10:28 1 TAB Acetaminophen 650 mg Q6HP PRN PO 06/27/24 04:30 Nitroglycerin 0.4 mg Q5MINP PRN SL 06/27/24 04:30 Morphine Sulfate 2 mg Q30M PRN IV 06/27/24 04:30 Clopidogrel Bisulfate 75 mg DAILY PO 06/27/24 10:00 06/28/24 10:28 75 MG Montelukast Sodium 10 mg DAILY PO 06/27/24 10:00 06/28/24 10:28 10 MG Aspirin 81 mg DAILY PO 06/27/24 10:00 06/28/24 10:28 81 MG Doxycycline Monohydrate 100 mg BID PO 06/27/24 10:00 06/28/24 10:28 100 MG Pantoprazole Sodium 40 mg DAILY PO 06/27/24 10:00 06/28/24 10:28 40 MG Albuterol 2.5 mg Q4HPRN PRN NEB 06/27/24 04:30 Ipratropium [place] 0.5 mg Q4HPRN PRN NEB 06/27/24 04:30 Methylprednisolone Sodium Succinate 60 mg Q8HR IV 06/27/24 14:00 06/28/24 05:37 60 MG Examination: GENERAL:Normal, HEENT:Normal, NECK:Normal, LUNGS:Normal, CVS:Normal, ABDOMEN:Normal, MSK:Normal, SKIN:Normal, NEURO:Normal, :Normal laboratory and microbiology Laboratory Tests 06/28/24 06:20 Test 06/28/24 06:20 Range/Units Serum Glucose 92 74-106 mg/dL Microbiology Date/Time Source Procedure Growth Status 06/27/24 19:34 Nose MRSA Screen - Final Complete Problem List/Assessment/Plan Problem List/Assessment/Plan Acute kidney injury on chronic kidney disease stage 4 Mild hyperkalemia secondary to acute kidney injury on CKD Metabolic acidosis COPD exacerbation Probable community-acquired pneumonia History of diabetes History of hypertension History of peripheral artery disease Type 2 obesity Plan: Discontinue fluids Kidney function improving Sodium bicarbonate 650 mg p.o. b.i.d. Strict I&Os monitoring with Larry catheter Continue IV antibiotics per hospitalist Follow up on urine studies Discussed with Dr. Samuels Code status: Full code Addendum Patient seen and examined, plan discussed with resident. Agree with above, we will follow closely Plan discussed with: Patient Dietary Evaluation Review Comments: Renal Specific 50g protein with CCHO-60 diet Expected Outcomes/Goals: controlled blood sugar, less uremic syndroms and gradual wt loss. VIOLETTA VAZQUEZ RESIDENT Jun 28, 2024 15:22 RADHA SAMUELS MD Jun 28, 2024 17:11
[2024-06-28] MEDS: SODIUM BICARBONATE 650 MG TAB PO ONE (15:59)
[2024-06-28] MEDS: SODIUM BICARBONATE 650 MG TAB PO SCH (23:20)
[2024-06-29] VITALS (11 sets, daily range): BP systolic 110–145; BP diastolic 45–77; PULSE 60–83; RESP 16–19; TEMP 97.3–98.3; O2SAT 94–100
[2024-06-29 07:34] LABS: Sodium 141 mmol/L (136-145)
[2024-06-29 07:35] LABS: Anion Gap 7 (5-15); Carbon Dioxide 19 mmol/L (20-31); Chloride 115 mmol/L (98-107)
[2024-06-29 07:39] LABS: Basophils # (auto) 0 10 ^3/uL (0-0.2); Basophils % (auto) 0.2 % (0.0-2.0); Eosinophils # (auto) 0 10 ^3/uL (0-0.8); Eosinophils % (auto) 0.1 % (0.0-7.0); Hematocrit 30.7 % (36.0-46.0); Mean Corpuscular Hgb Conc. 32.4 g/dL (32.0-36.0); Nucleated Red Blood Cells % 0.2 %; Red Blood Cells 2.97 10^6/uL (4.0-5.20)
[2024-06-29 07:40] LABS: BUN/Creatinine Ratio 22.5 (10.0-20.0)
[2024-06-29 07:41] LABS: Blood Urea Nitrogen 41 mg/dL (9-23); Glucose 138 mg/dL (74-106); Lymphocytes # (auto) 1.4 10 ^3/uL (0.4-5.4); Lymphocytes % (auto) 20.6 % (10.0-50.0); Mean Corpuscular Hemoglobin 33.6 pg (28.0-32.0); Mean Corpuscular Volume 103.5 fL (80.0-100.0); Monocytes # (auto) 0.3 10 ^3/uL (0-1.3); Monocytes % (auto) 3.9 % (0.0-12.0); Neutrophils % (auto) 75.2 % (37.0-80.0); Platelet Count (auto) 243 10^3/uL (140-450); Red Cell Distribution Width 16.9 % (11.8-14.3); White Blood Cell 6.6 10^3/uL (4.4-10.8)
--- NOTE | 2024-06-29 11:52 | DVHPN2 ---
Progress Note Date Seen: June 29, 2024 Resident Creating Document: ESAU ORDAZ RESIDENT Has the PT tested + for MRSA If YES, has PT been informed?: No Medical Necessity Reason Pt with a Central, PICC or Fol: No The following are medically ne: Larry Catheter Reason for larry catheter: Strict I&O Subjective Review of Systems Patient seen and examined at bedside, patient denied any acute complaint. Not wearing oxygen at present. Patient reports oxygen keeps falling off. Objective vital signs Vital Sign Date Time Temp Pulse Resp B/P (MAP) Pulse Ox O2 Delivery O2 Flow Rate FiO2 06/29/24 08:30 97.6 82 18 132/77 (95) 97 97.6 06/29/24 07:05 Room Air 06/29/24 07:05 0 21 medications Current Medications Medications Dose Ordered Sig/Martita Route Start Time Stop Time Status Last Admin Dose Admin Acetaminophen/ Hydrocodone Bitart 1 tab Q4HP PRN PO 06/27/24 04:30 Ondansetron HCl 4 mg Q4HP PRN IV 06/27/24 04:30 Multivitamins 1 tab DAILY PO 06/27/24 10:00 06/29/24 09:35 1 TAB Acetaminophen 650 mg Q6HP PRN PO 06/27/24 04:30 Nitroglycerin 0.4 mg Q5MINP PRN SL 06/27/24 04:30 Morphine Sulfate 2 mg Q30M PRN IV 06/27/24 04:30 Clopidogrel Bisulfate 75 mg DAILY PO 06/27/24 10:00 06/29/24 09:36 75 MG Montelukast Sodium 10 mg DAILY PO 06/27/24 10:00 06/29/24 09:35 10 MG Aspirin 81 mg DAILY PO 06/27/24 10:00 06/29/24 09:36 81 MG Doxycycline Monohydrate 100 mg BID PO 06/27/24 10:00 06/29/24 09:36 100 MG Pantoprazole Sodium 40 mg DAILY PO 06/27/24 10:00 06/29/24 09:36 40 MG Albuterol 2.5 mg Q4HPRN PRN NEB 06/27/24 04:30 Ipratropium [place] 0.5 mg Q4HPRN PRN NEB 06/27/24 04:30 Methylprednisolone Sodium Succinate 60 mg Q8HR IV 06/27/24 14:00 06/29/24 06:55 60 MG Sodium Bicarbonate 650 mg BID PO 06/28/24 22:00 06/29/24 09:36 650 MG Examination GENERAL:Normal, HEENT:Normal, NECK:Normal, LUNGS:Normal, CVS:Normal, ABDOMEN:Normal, MSK:Normal, SKIN:Normal, NEURO:Normal, :Normal laboratory and microbiology Laboratory Tests 06/29/24 06:28 Test 06/29/24 06:28 Range/Units Serum Glucose 138 H 74-106 mg/dL Microbiology Date/Time Source Procedure Growth Status 06/27/24 19:34 Nose MRSA Screen - Final Complete Problem List/Assessment/Plan Problem List/Assessment/Plan Assessment: Acute exacerbation of COPD Acute hypoxemia Atelectases CHF Plan: - Continue antibiotic treatment for 5-7 days - Monitor for clinical improvement - Assess readiness for discharge daily - Encourage mobilization as tolerated Case Discussed with Dr. Sykes Plan discussed with: Patient Dietary Evaluation Review Comments: Renal Specific 50g protein with CCHO-60 diet Expected Outcomes/Goals: controlled blood sugar, less uremic syndroms and gradual wt loss. Date of Service: June 29, 2024 Billing Provider: CLYDE SYKES MD Common Visit Codes: NOT BILLABLE ESAU ORDAZ RESIDENT June 29, 2024 11:52 CLYDE SYKES MD July 01, 2024 14:41
[2024-06-29] MEDS ORDERED: SODI650T PO (12:56)
[2024-06-29] MEDS ORDERED: DOXY100C79 PO (12:56)
--- NOTE | 2024-06-29 12:58 | DVHDS2 ---
Discharge Summary Date of Admission Jun 27, 2024 at 04:30 Date of Discharge: June 29, 2024 Labs/Diagnostic Data: Laboratory Results Test 06/29/24 06:28 06/28/24 06:20 06/27/24 14:45 06/27/24 09:15 White Blood Count 6.6 10^3/uL (4.4-10.8) Red Blood Count 2.97 10^6/uL (4.0-5.20) Hemoglobin 10.0 g/dL (12.2-16.2) Hematocrit 30.7 % (36.0-46.0) Mean Corpuscular Volume 103.5 fL (80.0-100.0) Mean Corpuscular Hemoglobin 33.6 pg (28.0-32.0) Mean Corpuscular Hemoglobin Concent 32.4 g/dL (32.0-36.0) Red Cell Distribution Width 16.9 % (11.8-14.3) Platelet Count 243 10^3/uL (140-450) Mean Platelet Volume 7.6 fL (6.9-10.8) Neutrophils (%) (Auto) 75.2 % (37.0-80.0) Lymphocytes (%) (Auto) 20.6 % (10.0-50.0) Monocytes (%) (Auto) 3.9 % (0.0-12.0) Eosinophils (%) (Auto) 0.1 % (0.0-7.0) Basophils (%) (Auto) 0.2 % (0.0-2.0) Neutrophils # (Auto) 5.0 10 ^3/uL (1.6-8.6) Lymphocytes # (Auto) 1.4 10 ^3/uL (0.4-5.4) Monocytes # (Auto) 0.3 10 ^3/uL (0-1.3) Eosinophils # (Auto) 0 10 ^3/uL (0-0.8) Basophils # (Auto) 0 10 ^3/uL (0-0.2) Nucleated Red Blood Cells 0.2 % Sodium Level 141 mmol/L (136-145) Potassium Level 4.0 mmol/L (3.5-5.1) Chloride Level 115 mmol/L (98-107) Carbon Dioxide Level 19 mmol/L (20-31) Anion Gap 7 (5-15) Blood Urea Nitrogen 41 mg/dL (9-23) Creatinine 1.82 mg/dL (0.550-1.02) Glomerular Filtration Rate Calc 29 mL/min (>90) BUN/Creatinine Ratio 22.5 (10.0-20.0) Serum Glucose 138 mg/dL (74-106) Calcium Level 9.0 mg/dL (8.7-10.4) Total Bilirubin 0.2 mg/dL (0.2-1.0) Aspartate Amino Transferase (AST) 15 U/L (13-40) Alanine Aminotransferase (ALT) 13 U/L (7-40) Alkaline Phosphatase 121 U/L (46-116) Total Protein 6.7 g/dL (5.7-8.2) Albumin 3.3 g/dL (3.2-4.8) Urine Color Yellow (Yellow) Urine Clarity Clear (Clear) Urine pH 5.5 (5.0-9.0) Urine Specific [place] 1.017 (1.001-1.035) Urine Protein 1+ (Negative) Urine Ketones Negative (Negative) Urine Blood Negative /uL (Negative) Urine Nitrite Negative (Negative) Urine Bilirubin Negative (Negative) Urine Urobilinogen Normal mg/dL (Negative) Urine Leukocyte Esterase 2+ /uL (Negative) Urine RBC 4 /hpf (0 - 4) Urine Microscopic WBC 41 /HPF (0-5) Urine Squamous Epithelial Cells Few /hpf (<5) Urine Bacteria Few /hpf (None Seen) Urine Hyaline Casts Few /lpf (0 - 2) Urine Yeast (Budding) Occasional /hpf (None Urine Creatinine 89.03 mg/dL (30.0-125.0) Urine Protein/Creatinine Ratio 0.95 Urine Glucose Normal mg/dL (Normal) Urine Total Protein 85.0 mg/dL (1-14) Phosphorus Level 3.9 mg/dL (2.4-5.1) Magnesium Level 2.1 mg/dL (1.6-2.6) Thyroid Stimulating Hormone (TSH) 0.73 uIU/mL (0.55-4.78) Test 06/27/24 01:36 06/27/24 01:30 06/27/24 00:45 Vitamin B12 Level 748 pg/mL (211-911) Vitamin D 25-Hydroxy 38.0 ng/mL (30.0-100) Lactic Acid Level 1.7 mmol/L (0.4-2.0) B-Type Natriuretic Peptide 146.35 pg/mL (0-100) Parathyroid Hormone (Intact) 76.0 pg/mL (18.4-80.1) POC Glucose 140 mg/dl (70-106) Other Laboratory Tests 06/29/24 06:28 Brief Hx & Hospital Course: 69 y/o female patient presents with c/o shortness of breath and generalized weakness. In the emergency room patient was found to be sating in the 80s on room air. While in the emergency department the patient was evaluated by the provider, As per provider: Labs, vital signs, and imagining monitored. Patient was admitted on 06/27/2024 for acute hypoxic respiratory failure related to COPD exacerbation. Patient also has severe aortic stenosis. Patient was treated with supplemental O2, Med-Neb treatment, and IV antibiotics. Patient's condition improved and she was weaned off oxygen. Patient will continue with oral antibiotics outpatient. She is to follow-up with PCP Dr. Pierce in 1 week. The patient received proper medical treatment and medications. Vital signs, Imaging and Laboratory Work was monitored daily. All consults recommendations were followed as provided. There were no complaints or new complaints upon discharge, all questions and concerns were answered. Patient was advised to return to the ER or call 911 if any headaches, dizziness, shortness of breath, chest pain, bleeding, fevers, or worsening of medical condition. Patient/Family was counseled about treatment plan, medications, possible side effects, patient verbalized understanding. All questions were answered to the best of my ability. The patient symptoms improved and they are okay to be DC. Condition at Discharge: Good Final Diagnosis/Problems List Acute hypoxic respiratory failure COPD exacerbation Morbid obesity MARILIN with VMN Hyperkalemia Macrocytic anemia Discharge Disposition: Home with Health Services Discharge Instruct/Medications Diet: Cardiac 2g Na,low cholest Activity: No Restrictions, As Tolerated Follow Up/Referral: PCP 1 WEEK Discharge Statement: "Patient was advised to return to the ER or call 911 if any headaches, dizziness, shortness of breath, chest pain, abdominal pain, bleeding, fevers, or worsening of medical condition. Patient was counseled about treatment plan, medications, possible side effects, patientverbalized understanding. All questions were answered to the best of my ability. This discharge took greater then 30 minutes in planning, reviewing documentation, counseling the patient, and discussing with other team members." ASSESSMENT ASSESSMENT Assessment COPD EXAC LEATHA ADAMS NP June 29, 2024 12:57
--- NOTE | 2024-06-29 15:59 | DVHPN2 ---
Progress Note Date Seen: June 29, 2024 Resident Creating Document: VIOLETTA VAZQUEZ RESIDENT Has the PT tested + for MRSA If YES, has PT been informed?: No Medical Necessity Reason Pt with a Central, PICC or Fol: No The following are medically ne: Larry Catheter Reason for larry catheter: Strict I&O Subjective Review of Systems Patient is seen and examined at bedside, kidney function is improving, we will advise the patient to follow up with nephrology as an outpatient. There is no further workup indicated at this time we are signing off. Patient reports: Feels better Changes from previous H/P or p: Changes Objective vital signs Vital Sign Date Time Temp Pulse Resp B/P (MAP) Pulse Ox O2 Delivery O2 Flow Rate FiO2 06/29/24 13:00 98.0 78 16 110/59 (76) 94 98.0 06/29/24 07:05 Room Air 06/29/24 07:05 0 21 medications Current Medications Medications Dose Ordered Sig/Martita Route Start Time Stop Time Status Last Admin Dose Admin Acetaminophen/ Hydrocodone Bitart 1 tab Q4HP PRN PO 06/27/24 04:30 Ondansetron HCl 4 mg Q4HP PRN IV 06/27/24 04:30 Multivitamins 1 tab DAILY PO 06/27/24 10:00 06/29/24 09:35 1 TAB Acetaminophen 650 mg Q6HP PRN PO 06/27/24 04:30 Nitroglycerin 0.4 mg Q5MINP PRN SL 06/27/24 04:30 Morphine Sulfate 2 mg Q30M PRN IV 06/27/24 04:30 Clopidogrel Bisulfate 75 mg DAILY PO 06/27/24 10:00 06/29/24 09:36 75 MG Montelukast Sodium 10 mg DAILY PO 06/27/24 10:00 06/29/24 09:35 10 MG Aspirin 81 mg DAILY PO 06/27/24 10:00 06/29/24 09:36 81 MG Doxycycline Monohydrate 100 mg BID PO 06/27/24 10:00 06/29/24 09:36 100 MG Pantoprazole Sodium 40 mg DAILY PO 06/27/24 10:00 06/29/24 09:36 40 MG Albuterol 2.5 mg Q4HPRN PRN NEB 06/27/24 04:30 Ipratropium [place] 0.5 mg Q4HPRN PRN NEB 06/27/24 04:30 Methylprednisolone Sodium Succinate 60 mg Q8HR IV 06/27/24 14:00 06/29/24 06:55 60 MG Sodium Bicarbonate 650 mg BID PO 06/28/24 22:00 06/29/24 09:36 650 MG Examination: GENERAL:Normal, HEENT:Normal, NECK:Normal, LUNGS:Normal, CVS:Normal, ABDOMEN:Normal, MSK:Normal, SKIN:Normal, NEURO:Normal, :Normal laboratory and microbiology Laboratory Tests 06/29/24 06:28 Test 06/29/24 06:28 Range/Units Serum Glucose 138 H 74-106 mg/dL Microbiology Date/Time Source Procedure Growth Status 06/27/24 19:34 Nose MRSA Screen - Final Complete Problem List/Assessment/Plan Problem List/Assessment/Plan Acute kidney injury on chronic kidney disease stage 4 Mild hyperkalemia secondary to acute kidney injury on CKD Metabolic acidosis COPD exacerbation Probable community-acquired pneumonia History of diabetes History of hypertension History of peripheral artery disease Type 2 obesity Plan: Discontinue fluids Kidney function improving Sodium bicarbonate 650 mg p.o. b.i.d. Strict I&Os monitoring with Larry catheter Continue IV antibiotics per hospitalist There is no further workup indicated at this time we are signing off, feel free to reach out if any concern arises. Discussed with Dr. Samuels Code status: Full code Addendum Patient seen and examined, plan discussed with resident. Agree with above, Plan discussed with: Patient Dietary Evaluation Review Comments: Renal Specific 50g protein with CCHO-60 diet Expected Outcomes/Goals: controlled blood sugar, less uremic syndroms and gradual wt loss. VIOLETTA VAZQUEZ RESIDENT June 29, 2024 15:59 RADHA SAMUELS MD June 29, 2024 19:37
[2024-06-29] MEDS: ALBUTEROL SULF 2.5 MG/0.5ML(0.5%) NEB SOLN NEB PRN (19:47)
[2024-06-29] MEDS: IPRATROPIUM BROM 0.5 MG/2.5ML INH SOL NEB PRN (19:48)
[2024-06-30] VITALS (7 sets, daily range): BP systolic 99–134; BP diastolic 57–66; PULSE 66–77; RESP 16–18; TEMP 97.7–98.3; O2SAT 95–98
[2024-06-30 08:01] LABS: Anion Gap 10 (5-15); Basophils # (auto) 0 10 ^3/uL (0-0.2); Basophils % (auto) 0.2 % (0.0-2.0); Eosinophils # (auto) 0 10 ^3/uL (0-0.8); Eosinophils % (auto) 0.1 % (0.0-7.0); Hematocrit 31.5 % (36.0-46.0); Hemoglobin 10.4 g/dL (12.2-16.2); Lymphocytes # (auto) 0.8 10 ^3/uL (0.4-5.4); Lymphocytes % (auto) 13.4 % (10.0-50.0); Mean Corpuscular Hemoglobin 33.8 pg (28.0-32.0); Mean Corpuscular Hgb Conc. 33.2 g/dL (32.0-36.0); Mean Corpuscular Volume 101.7 fL (80.0-100.0); Monocytes # (auto) 0.1 10 ^3/uL (0-1.3); Monocytes % (auto) 2.4 % (0.0-12.0); Neutrophils # (auto) 5.1 10 ^3/uL (1.6-8.6); Neutrophils % (auto) 83.9 % (37.0-80.0); Nucleated Red Blood Cells % 0.2 %; Platelet Count (auto) 255 10^3/uL (140-450); Potassium 4.5 mmol/L (3.5-5.1); Red Blood Cells 3.09 10^6/uL (4.0-5.20); Red Cell Distribution Width 16.4 % (11.8-14.3); Sodium 142 mmol/L (136-145); White Blood Cell 6.1 10^3/uL (4.4-10.8)
[2024-06-30 08:03] LABS: Calcium 9.1 mg/dL (8.7-10.4)
[2024-06-30 08:08] LABS: BUN/Creatinine Ratio 27.8 (10.0-20.0)
[2024-06-30 08:11] LABS: Blood Urea Nitrogen 47 mg/dL (9-23); Carbon Dioxide 20 mmol/L (20-31); Chloride 112 mmol/L (98-107); Glucose 143 mg/dL (74-106)
--- NOTE | 2024-06-30 11:02 | DVHPN2 ---
Progress Note - Dictate Date Seen: June 29, 2024 Has the PT tested + for MRSA If YES, has PT been informed?: No Medical Necessity Reason Pt with a Central, PICC or Fol: No The following are medically ne: Larry Catheter Reason for larry catheter: Strict I&O vital signs Vital Sign Date Time Temp Pulse Resp B/P (MAP) Pulse Ox O2 Delivery O2 Flow Rate FiO2 06/30/24 09:00 98.1 67 17 134/63 (86) 95 98.1 06/30/24 08:00 Room Air* 0 21 Total Intake and Output 06/29/24 06/29/24 06/30/24 15:00 23:00 07:00 Intake Total 640 ml Output Total 1700 ml Balance -1060 ml medications Current Medications Medications Dose Ordered Sig/Martita Route Start Time Stop Time Status Last Admin Dose Admin Acetaminophen/ Hydrocodone Bitart 1 tab Q4HP PRN PO 06/27/24 04:30 Ondansetron HCl 4 mg Q4HP PRN IV 06/27/24 04:30 Multivitamins 1 tab DAILY PO 06/27/24 10:00 06/29/24 09:35 1 TAB Acetaminophen 650 mg Q6HP PRN PO 06/27/24 04:30 Nitroglycerin 0.4 mg Q5MINP PRN SL 06/27/24 04:30 Morphine Sulfate 2 mg Q30M PRN IV 06/27/24 04:30 Clopidogrel Bisulfate 75 mg DAILY PO 06/27/24 10:00 06/29/24 09:36 75 MG Montelukast Sodium 10 mg DAILY PO 06/27/24 10:00 06/29/24 09:35 10 MG Aspirin 81 mg DAILY PO 06/27/24 10:00 06/29/24 09:36 81 MG Doxycycline Monohydrate 100 mg BID PO 06/27/24 10:00 06/29/24 23:18 100 MG Pantoprazole Sodium 40 mg DAILY PO 06/27/24 10:00 06/29/24 09:36 40 MG Albuterol 2.5 mg Q4HPRN PRN NEB 06/27/24 04:30 06/29/24 19:47 2.5 MG Ipratropium [place] 0.5 mg Q4HPRN PRN NEB 06/27/24 04:30 06/29/24 19:48 0.5 MG Methylprednisolone Sodium Succinate 60 mg Q8HR IV 06/27/24 14:00 06/30/24 05:21 60 MG Sodium Bicarbonate 650 mg BID PO 06/28/24 22:00 06/29/24 23:18 650 MG objective General Appearance: alert, no distress HEENT: EOMI, PERRLA, normal external inspect of ears, no icterus, no nasal drainage Neck: no carotid bruit, no jugular venous distention (JVD), no lymphadenopathy Chest: normal thorax Respiratory: clear to auscultation, normal air movement Cardiovascular: regular rate and rhythm, no diastolic murmur, no jugular venous distention (JVD), no rub, no systolic murmur Abdominal: soft, no hepatomegaly, no mass, no splenomegaly, no tenderness Genitourinary: grossly normal external Musculoskeletal: no joint tenderness, no swelling Extremities: normal pulses, no calf tenderness, no clubbing, no cyanosis, no edema Skin: no bruising, no jaundice, no rash Neurological: alert, No focal deficit laboratory and microbiology Laboratory Tests 06/30/24 07:06 Test 06/30/24 07:06 Range/Units Serum Glucose 143 H 74-106 mg/dL Problem List 1. Acute hypoxic respiratory failure Monitor, pulmonary consult, supplemental O2, Med-Neb tx, IV abx 2. COPD exacerbation Monitor, pulmonary consult, IV steroids 3. Morbid obesity Monitor, cardiac diet 4. MARILIN with VMN Monitor, nephrology consult, hold diuretics, daily labs 5. Hyperkalemia Monitor, hyperkalemic protocol, daily labs 6. Macrocytic anemia Monitor, daily labs Assessment/Plan Subjective: Patient is awake and alert. Objective: Patient was admitted for a COPD exacerbation. Patient is predominantly bedbound. Patient denies any cough or sore throat at this time. Patient states she is under medical management. Plan: Continue current management. Await completion of home health arrangements. DC planning for tomorrow. Dietary Evaluation Review Comments: Renal Specific 50g protein with CCHO-60 diet Expected Outcomes/Goals: controlled blood sugar, less uremic syndroms and gradual wt loss. Plan discussed with: Patient, Other LEATHA ADAMS NP June 30, 2024 11:02
--- NOTE | 2024-06-30 14:54 | DVHPN2 ---
Progress Note Date Seen: June 30, 2024 Resident Creating Document: ESAU ORDAZ RESIDENT Has the PT tested + for MRSA If YES, has PT been informed?: No Medical Necessity Reason Pt with a Central, PICC or Fol: No The following are medically ne: Larry Catheter Reason for larry catheter: Strict I&O Subjective Review of Systems Patient seen and examined at bedside, patient denied any acute complaint. Not wearing oxygen at present. Objective vital signs Vital Sign Date Time Temp Pulse Resp B/P (MAP) Pulse Ox O2 Delivery O2 Flow Rate FiO2 06/30/24 09:00 98.1 67 17 134/63 (86) 95 98.1 06/30/24 08:00 Room Air* 0 21 Total Intake and Output 06/29/24 06/29/24 06/30/24 15:00 23:00 07:00 Intake Total 640 ml Output Total 1700 ml Balance -1060 ml medications Current Medications Medications Dose Ordered Sig/Martita Route Start Time Stop Time Status Last Admin Dose Admin Acetaminophen/ Hydrocodone Bitart 1 tab Q4HP PRN PO 06/27/24 04:30 Ondansetron HCl 4 mg Q4HP PRN IV 06/27/24 04:30 Multivitamins 1 tab DAILY PO 06/27/24 10:00 06/29/24 09:35 1 TAB Acetaminophen 650 mg Q6HP PRN PO 06/27/24 04:30 Nitroglycerin 0.4 mg Q5MINP PRN SL 06/27/24 04:30 Morphine Sulfate 2 mg Q30M PRN IV 06/27/24 04:30 Clopidogrel Bisulfate 75 mg DAILY PO 06/27/24 10:00 06/29/24 09:36 75 MG Montelukast Sodium 10 mg DAILY PO 06/27/24 10:00 06/29/24 09:35 10 MG Aspirin 81 mg DAILY PO 06/27/24 10:00 06/29/24 09:36 81 MG Doxycycline Monohydrate 100 mg BID PO 06/27/24 10:00 06/29/24 23:18 100 MG Pantoprazole Sodium 40 mg DAILY PO 06/27/24 10:00 06/29/24 09:36 40 MG Albuterol 2.5 mg Q4HPRN PRN NEB 06/27/24 04:30 06/29/24 19:47 2.5 MG Ipratropium [place] 0.5 mg Q4HPRN PRN NEB 06/27/24 04:30 06/29/24 19:48 0.5 MG Methylprednisolone Sodium Succinate 60 mg Q8HR IV 06/27/24 14:00 06/30/24 05:21 60 MG Sodium Bicarbonate 650 mg BID PO 06/28/24 22:00 06/29/24 23:18 650 MG Examination GENERAL:Normal, HEENT:Normal, NECK:Normal, LUNGS:Normal, CVS:Normal, ABDOMEN:Normal, MSK:Normal, SKIN:Normal, NEURO:Normal, :Normal laboratory and microbiology Laboratory Tests 06/30/24 07:06 Test 06/30/24 07:06 Range/Units Serum Glucose 143 H 74-106 mg/dL Microbiology Date/Time Source Procedure Growth Status 06/28/24 09:48 Ankle Right Gram Stain - Final Resulted 06/28/24 09:48 Ankle Right Wound Culture - Preliminary Resulted Problem List/Assessment/Plan Problem List/Assessment/Plan Assessment: Acute exacerbation of COPD Acute hypoxemia Atelectases CHF Plan: - Continue antibiotic treatment for 5-7 days - Monitor for clinical improvement - Assess readiness for discharge daily - Encourage mobilization as tolerated Case Discussed with Dr. Sykes Plan discussed with: Patient Dietary Evaluation Review Comments: Renal Specific 50g protein with CCHO-60 diet Expected Outcomes/Goals: controlled blood sugar, less uremic syndroms and gradual wt loss. Date of Service: June 30, 2024 Billing Provider: CLYDE SYKES MD Common Visit Codes: NOT BILLABLE ESAU ORDAZ RESIDENT June 30, 2024 14:54 CLYDE SYKES MD July 01, 2024 14:42
== END 2024-06-30 15:44 | disposition home health service (06) | DRG 682 ==
LOC: ER 00:28 → OVERFLOW 04:30 → TELE-CENTR 18:51
PROVIDERS: ADMIT Nurse Practitioner; ATTEND Nurse Practitioner
PROC: 05HB33Z Insertion of Infusion Device into Right Basilic Vein, Percutaneous Approach (ICD-10-PCS; principal; 2024-06-27)
PROC: B54MZZA Ultrasonography of Right Upper Extremity Veins, Guidance (ICD-10-PCS; 2024-06-27)
DX: N17.0 Acute kidney failure with tubular necrosis (principal); G93.41 Metabolic encephalopathy; J96.01 Acute respiratory failure with hypoxia; J44.1 Chronic obstructive pulmonary disease with (acute) exacerbation; E87.20 Acidosis, unspecified; J44.0 Chronic obstructive pulmonary disease with (acute) lower respiratory infection; J98.11 Atelectasis; N18.4 Chronic kidney disease, stage 4 (severe); I50.9 Heart failure, unspecified; E87.5 Hyperkalemia; D53.9 Nutritional anemia, unspecified; E66.01 Morbid (severe) obesity due to excess calories; E11.51 Type 2 diabetes mellitus with diabetic peripheral angiopathy without gangrene; E11.42 Type 2 diabetes mellitus with diabetic polyneuropathy; G89.29 Other chronic pain; M54.50 Low back pain, unspecified; I25.10 Atherosclerotic heart disease of native coronary artery without angina pectoris; E78.5 Hyperlipidemia, unspecified; G40.909 Epilepsy, unspecified, not intractable, without status epilepticus; I35.0 Nonrheumatic aortic (valve) stenosis; I11.0 Hypertensive heart disease with heart failure; Z79.4 Long term (current) use of insulin; Z88.8 Allergy status to other drugs, medicaments and biological substances; Z79.899 Other long term (current) drug therapy; Z79.82 Long term (current) use of aspirin; Z79.2 Long term (current) use of antibiotics; Z99.3 Dependence on wheelchair; Z68.35 Body mass index [BMI] 35.0-35.9, adult; Z79.02 Long term (current) use of antithrombotics/antiplatelets
CPT/HCPCS: 36415; 71045; 80048; 80053; 81001; 82306; 82570; 82607; 82962; 83605; 83735; 83880; 83970; 84100; 84156; 84443; 85025; 87077; 87081; 87205; 94640; 96365; 96375; 99291; G0378; J0692; J2405